=== PATIENT | female | born 1990 | race Caucasian/White ===

== ENCOUNTER 2016-02-25 11:18 | Inpatient (IN) ==
[2016-02-25] MEDS ORDERED: Ketorolac 30 MG/ML VIAL IVP ONE (12:12)
[2016-02-25] MEDS ORDERED: Ondansetron 4 MG/2 ML VIAL IVP ONE ×2 (12:12→15:49)
[2016-02-25] MEDS ORDERED: 0.9 % Sodium Chloride 2,000 ML IVC ONE (12:12)
--- NOTE | 2016-02-25 12:32 | Emergency Department Note ---
Disposition Clinical Impression: Pneumonia involving left lung Qualifiers: Pneumonia type: due to unspecified organism Lung location: unspecified part of lung Qualified Code(s): J18.9 - Pneumonia, unspecified organism Disposition: Admitted As Inpatient Condition: Fair Referrals: NO,PCP [Primary Care Provider] - Forms: ED Satisfaction Letter General Adult HPI - General Chief complaint: ED Fever Stated complaint: HARDIN, N/V Time Seen by Provider: 02/25/16 11:34 Source: patient Mode of arrival: private vehicle Limitations: no limitations Nursing Notes Reviewed: Yes Vital Signs Reviewed: Yes - History of Present Illness Pt Subjective Complaint: chest pain, cough, congestion, headache, nausea, vomiting, and diarrhea Onset (ago): day(s) (4) Location: head, chest Radiation: non-radiation Pain Severity: moderate Pain Scale: 8 Quality: burning, dull Consistency: constant Improves with: nothing Worsens with: other (coughing) Associated symptoms: Reports: chest pain, cough, diaphoresis, fever/chills, headaches, loss of appetite, malaise, nausea/vomiting. Denies: confusion, rash , seizure, shortness of breath, syncope, weakness Treatments Prior to Arrival: none - Related Data Home Medications Medication Instructions Recorded Confirmed Buspirone HCl [Buspar] 10 mg PO BID 02/25/16 02/25/16 CloNIDine HCl [Kapvay] 0.1 mg PO DAILY 02/25/16 02/25/16 Gabapentin [Neurontin] 300 mg PO TID 02/25/16 02/25/16 Labetalol [Trandate] 100 mg PO BID 02/25/16 02/25/16 Quetiapine Fumarate [Seroquel] 50 mg PO HS 02/25/16 02/25/16 Sertraline [Zoloft] 50 mg PO DAILY 02/25/16 02/25/16 Allergies Allergy/AdvReac Type Severity Reaction Status Date / Time azithromycin AdvReac Gastrointestinal Verified 02/25/16 16:43 Upset All systems ED: reviewed and negative except as stated. Constitutional: Reports: fever, chills, weakness Eyes: Denies: eye pain, eye discharge, vision change ENT ED: Reports: congestion. Denies: ear pain, throat pain, dysphagia Cardiovascular: Reports: chest pain. Denies: palpitations, dyspnea on exertion , orthopnea, edema, syncope Respiratory: Reports: cough. Denies: dyspnea, wheezes, hemoptysis, stridor, sputum production Gastrointestinal: Reports: nausea, vomiting, diarrhea. Denies: abdominal pain Genitourinary: Denies: urgency, dysuria, frequency, hematuria Integumentary: Denies: rash Neurological: Denies: headache, weakness, numbness Hematological/Lymphatic: Denies: easy bleeding, easy bruising Allergic/Immunologic: Denies: facial swelling, urticaria, itchy eyes Past Medical History - Past Medical History Attestation: Yes The following information was validated with the patient. Source: patient Medical history: Reports: hepatitis, hypertension, other Surgical history: Reports: no surgical history Psychiatric history: Reports: anxiety, bipolar, depression NUTRIENT MANAGEMENT SPECIALIST history: Reports: no NUTRIENT MANAGEMENT SPECIALIST history - Social History Smoking Status: Current every day smoker Smokeless Tobacco Status: No Alcohol use: Reports: none Drug use: Reports: none, other Physical Exam - General Limitations: no limitations General appearance: alert, in no apparent distress - Head Head exam: atraumatic, normocephalic, normal inspection - Eye Eye exam: Present: normal appearance, PERRL, EOMI. Absent: scleral icterus, conjunctival injection, periorbital swelling - ENT ENT exam: normal oropharynx, mucous membranes dry, TM's normal bilaterally, normal external ear exam - Neck Neck exam: Present: normal inspection, full ROM, trachea midline. Absent: meningismus, lymphadenopathy - Chest Chest inspection: Present: normal inspection, symmetric chest wall rise. Absent : tenderness - Respiratory Respiratory exam: Present: other (crackles in bases). Absent: respiratory distress, wheezes, stridor, accessory muscle use, prolonged expiratory phase - Cardiovascular Cardiovascular exam: Present: normal rhythm, tachycardia, normal heart sounds. Absent: systolic murmur, diastolic murmur - Abdominal Exam Abdominal exam: Present: soft, Non-Tender. Absent: distention, guarding, rebound, mass - Extremities Exam Extremities exam: Present: normal inspection, full ROM. Absent: tenderness, pedal edema - Expanded Lower Extremity Exam Gait: observed and normal - Neurological Exam Neurological exam: Present: alert, oriented X3, CN II-XII intact, normal gait - Psychiatric Psychiatric exam: Present: normal affect, normal mood - Skin Skin exam: Present: warm, dry, intact, normal color Course Course Narrative: Patient presents for evaluation of cough, chest pain, congestion, fever, headache, nausea, vomiting and diarrhea for the past four days. Clinically, she appears dehydrated. She is not hypoxic or tachypneic, has normal blood pressure and has no history of asthma or COPD. She feels warm, however, her temperature in triage was normal. She has no meningeal signs, no abdominal tenderness, no rashes, no neurologic deficits. Labs and x-ray have been ordered along with fluids and medications. Patient has a white count of 25, x-ray shows pneumonia in the left lung. She has had 2 L of normal saline and is feeling better. She is still mildly tachycardic, blood pressure is stable & Normal. Patient received IV Rocephin. However, when the azithromycin was started, she began vomiting again. She has had multiple doses of antiemetics. It is unknown clear whether this is a drug allergy or just continued vomiting from the illness. She still has no abdominal tenderness and denies abdominal pain. Hospitalist has been contacted for admission. Patient's lactic acid was ordered but has not yet been drawn. Her initial presentation did not meet SIRS criteria. Clinically, she appears to have the flu, but was hemodynamically stable and afebrile. Case was discussed with Dr. Pineda. She has seen the patient and agrees with the assessment and plan. Hospitalist was contacted for admission. He will accept the patient. Vital Signs Temperature 99.6 F 02/25/16 11:21 Pulse Rate 140 02/25/16 11:21 Respiratory Rate 20 02/25/16 11:21 Blood Pressure 122/82 02/25/16 11:21 O2 Sat by Pulse Oximetry 96 02/25/16 11:21 Temperature 99.6 F 02/25/16 11:21 Pulse Rate 92 02/25/16 15:38 Respiratory Rate 16 02/25/16 15:38 Blood Pressure 108/89 02/25/16 11:42 O2 Sat by Pulse Oximetry 97 02/25/16 15:38 Oxygen Delivery Oxygen Delivery Room Air Medical Decision Making - Medical Records Medical records reviewed: Yes I reviewed the patient's medical records. - Lab Data Lab results reviewed: Yes I reviewed the patient's lab results. Lab results narrative: Laboratory Last Values WBC 25.8 K/mcL (4.3-11.1) H 02/25/16 12:35 RBC 4.85 M/mcL (3.82-4.97) 02/25/16 12:35 Hgb 13.8 g/dL (11.5-15.4) 02/25/16 12:35 Hct 41.1 % (35.3-44.9) 02/25/16 12:35 MCV 84.7 fL (83.0-100.0) 02/25/16 12:35 MCH 28.5 pg (28.0-33.3) 02/25/16 12:35 MCHC 33.6 g/dL (31.6-35.5) 02/25/16 12:35 RDW 14.3 % (11.5-14.5) 02/25/16 12:35 Plt Count 123 K/mcL (140-400) L 02/25/16 12:35 MPV 11.2 fL (9.4-12.4) 02/25/16 12:35 Seg Neutrophils % 90.0 % 02/25/16 12:35 Lymphocytes % 10.0 % 02/25/16 12:35 Neutrophils # 23.2 K/mcL (1.6-8.9) H 02/25/16 12:35 Lymphocytes # 2.6 K/mcL (0.6-4.6) 02/25/16 12:35 Platelet Estimate Decreased (Normal) L 02/25/16 12:35 Immature Plt Fraction 8.5 % (1.1-6.1) H 02/25/16 12:35 Sodium 133 mEq/L (136-145) L 02/25/16 12:35 Potassium 3.6 mEq/L (3.5-4.5) 02/25/16 12:35 Chloride 100 mEq/L (98-109) 02/25/16 12:35 Carbon Dioxide 21 mEq/L (19-29) 02/25/16 12:35 BUN 8 mg/dL (7-20) 02/25/16 12:35 Creatinine 0.65 mg/dL (0.57-1.11) 02/25/16 12:35 Est GFR ( Amer) > 60 (> 60) 02/25/16 12:35 Est GFR (Non-Af Amer) > 60 (> 60) 02/25/16 12:35 BUN/Creatinine Ratio 12 (6-26) 02/25/16 12:35 Glucose 144 mg/dL (70-99) H 02/25/16 12:35 Calculated Osmolality 277 (280-300) L 02/25/16 12:35 Calcium 9.3 mg/dL (8.6-10.8) 02/25/16 12:35 Total Bilirubin 1.8 mg/dL (0.2-1.2) H 02/25/16 12:35 Direct Bilirubin 1.0 mg/dL (0.0-0.5) H 02/25/16 12:35 Indirect Bilirubin 0.8 mg/dL (0.0-1.2) 02/25/16 12:35 AST 27 Units/L (5-34) 02/25/16 12:35 ALT 46 Units/L (0-55) 02/25/16 12:35 Alkaline Phosphatase 76 Units/L (38-126) 02/25/16 12:35 Serum Total Protein 7.7 g/dL (6.0-8.3) 02/25/16 12:35 Albumin 3.5 g/dL (3.5-5.0) 02/25/16 12:35 Globulin 4.2 g/dL (2.4-3.5) H 02/25/16 12:35 Albumin/Globulin Ratio 0.8 (1.1-2.2) L 02/25/16 12:35 Urine Color Dark Yellow (Yellow) 02/25/16 14:47 Urine Clarity Cloudy (Clear) A 02/25/16 14:47 Urine pH 6.0 pH Units (5.0-8.0) 02/25/16 14:47 Ur Specific [place] 1.021 (1.010-1.025) 02/25/16 14:47 Urine Protein 30 mg/dL (Neg-Trace) H 02/25/16 14:47 Urine Glucose (UA) Normal mg/dL (Normal) 02/25/16 14:47 Urine Ketones 40 mg/dL (Negative) H 02/25/16 14:47 Urine Blood Negative (Negative) 02/25/16 14:47 Urine Nitrite Negative (Negative) 02/25/16 14:47 Urine Bilirubin Negative (Negative) 02/25/16 14:47 Urine Urobilinogen Normal mg/dL (Normal) 02/25/16 14:47 Ur Leukocyte Esterase Negative (Negative) 02/25/16 14:47 Urine Microscopic RBC 0-3 per hpf (0-3) 02/25/16 14:47 Urine Microscopic WBC 5-15 per hpf (0-3) H 02/25/16 14:47 Ur Squamous Epith Cells Many per lpf (None-Few) H 02/25/16 14:47 Urine Bacteria Few per hpf (None-Few) 02/25/16 14:47 Hyaline Casts None Seen per lpf (None-Few) 02/25/16 14:47 Urine Mucus Moderate (Few) H 02/25/16 14:47 Ur Culture Indicated? YES (NO) A 02/25/16 14:47 Result diagrams: 02/25/16 12:35 02/25/16 12:35 Lab Results 02/25/16 02/25/16 02/25/16 Range/Units 12:35 12:35 14:47 WBC 25.8 H (4.3-11.1) K/mcL RBC 4.85 (3.82-4.97) M/mcL Hgb 13.8 (11.5-15.4) g/dL Hct 41.1 (35.3-44.9) % MCV 84.7 (83.0-100.0) fL MCH 28.5 (28.0-33.3) pg MCHC 33.6 (31.6-35.5) g/dL RDW 14.3 (11.5-14.5) % Plt Count 123 L (140-400) K/mcL MPV 11.2 (9.4-12.4) fL Seg Neutrophils % 90.0 % Lymphocytes % 10.0 % Neutrophils # 23.2 H (1.6-8.9) K/mcL Lymphocytes # 2.6 (0.6-4.6) K/mcL Platelet Estimate Decreased L (Normal) Immature Plt Fraction 8.5 H (1.1-6.1) % Sodium 133 L (136-145) mEq/L Potassium 3.6 (3.5-4.5) mEq/L Chloride 100 (98-109) mEq/L Carbon Dioxide 21 (19-29) mEq/L BUN 8 (7-20) mg/dL Creatinine 0.65 (0.57-1.11) mg/dL Est GFR ( Amer) > 60 (> 60) Est GFR (Non-Af Amer) > 60 (> 60) BUN/Creatinine Ratio 12 (6-26) Glucose 144 H (70-99) mg/dL Calculated Osmolality 277 L (280-300) Calcium 9.3 (8.6-10.8) mg/dL Total Bilirubin 1.8 H (0.2-1.2) mg/dL Direct Bilirubin 1.0 H (0.0-0.5) mg/dL Indirect Bilirubin 0.8 (0.0-1.2) mg/dL AST 27 (5-34) Units/L ALT 46 (0-55) Units/L Alkaline Phosphatase 76 (38-126) Units/L Serum Total Protein 7.7 (6.0-8.3) g/dL Albumin 3.5 (3.5-5.0) g/dL Globulin 4.2 H (2.4-3.5) g/dL Albumin/Globulin Ratio 0.8 L (1.1-2.2) Urine Color Dark Yellow (Yellow) Urine Clarity Cloudy A (Clear) Urine pH 6.0 (5.0-8.0) pH Units Ur Specific [place] 1.021 (1.010-1.025) Urine Protein 30 H (Neg-Trace) mg/dL Urine Glucose (UA) Normal (Normal) mg/dL Urine Ketones 40 H (Negative) mg/dL Urine Blood Negative (Negative) Urine Nitrite Negative (Negative) Urine Bilirubin Negative (Negative) Urine Urobilinogen Normal (Normal) mg/dL Ur Leukocyte Esterase Negative (Negative) Urine Microscopic RBC 0-3 (0-3) per hpf Urine Microscopic WBC 5-15 H (0-3) per hpf Ur Squamous Epith Cells Many H (None-Few) per lpf Urine Bacteria Few (None-Few) per hpf Hyaline Casts None Seen (None-Few) per lpf Urine Mucus Moderate H (Few) Ur Culture Indicated? YES A (NO) - Radiology Data Radiology results reviewed: Yes I reviewed the patient's radiology results. Chest X-Ray 02/25/16 12:13 IMPRESSION: Ground-glass opacity in the left mid and lower lung zone, highly suspicious for infection in the appropriate clinical setting. Recommend treating the patient and following to resolution. D/ / 02/25/2016 13:12:53 Rachael Schroeder MD / jazz Interpreting Provider: Rachael Schroeder MD - EKG Data EKG #1 EKG attestation: Yes I reviewed and interpreted this EKG. EKG shows normal: sinus rhythm Rate: tachycardia Rhythm: NSR When compared to previous EKG there are: previous EKG unavailable Interpretation: other
[2016-02-25 12:42] LABS: Hematocrit 41.1 % (35.3-44.9); Hemoglobin 13.8 g/dL (11.5-15.4); Immature Platelets 8.5 % (1.1-6.1); Mean Corpuscular HGB Conc 33.6 g/dL (31.6-35.5); Mean Corpuscular Hemoglobin 28.5 pg (28.0-33.3); Mean Corpuscular Volume 84.7 fL (83.0-100.0); Mean Platelet Volume 11.2 fL (9.4-12.4); Platelet Count 123 K/mcL (140-400); Red Blood Count 4.85 M/mcL (3.82-4.97); Red Cell Distribution Width 14.3 % (11.5-14.5)
[2016-02-25 12:54] LABS: Alanine Aminotransferase 46 Units/L (0-55); Albumin 3.5 g/dL (3.5-5.0); Albumin/Globulin Ratio 0.8 (1.1-2.2); Alkaline Phosphatase 76 Units/L (38-126); Aspartate Amino Transferase 27 Units/L (5-34); BUN/Creatinine Ratio 12 (6-26); Bilirubin,Indirect 0.8 mg/dL (0.0-1.2); Bilirubin,Total 1.8 mg/dL (0.2-1.2); Blood Urea Nitrogen 8 mg/dL (7-20); Calcium 9.3 mg/dL (8.6-10.8); Carbon Dioxide 21 mEq/L (19-29); Chloride 100 mEq/L (98-109); Globulin 4.2 g/dL (2.4-3.5); Glucose 144 mg/dL (70-99); Osmolality,Calculated 277 (280-300); Potassium 3.6 mEq/L (3.5-4.5); Sodium 133 mEq/L (136-145); Total Protein 7.7 g/dL (6.0-8.3); eGFR For African Americans > 60 (> 60); eGFR For Non-African Americans > 60 (> 60)
[2016-02-25 13:30] LABS: Lymphocytes # 2.6 K/mcL (0.6-4.6); Neutrophils # 23.2 K/mcL (1.6-8.9); Platelet Estimate Decreased (Normal)
[2016-02-25] MEDS ORDERED: Metoclopramide 10 MG/2 ML VIAL IVP ONE (14:08)
[2016-02-25] MEDS ORDERED: Azithromycin 500 MG in D5% in Water 250 ML IVPB ONE (14:12)
[2016-02-25 14:55] LABS: Bilirubin,Urine Negative (Negative); Blood,Urine Negative (Negative); Clarity,Urine Cloudy (Clear); Color,Urine Dark Yellow (Yellow); Glucose,Urine (UA) Normal (Normal); Ketones,Urine 40 mg/dL (Negative); Leukocyte Esterase,Urine Negative (Negative); Nitrite,Urine Negative (Negative); Protein,Urine 30 mg/dL (Neg-Trace); Specific Gravity,Urine 1.021 (1.010-1.025); Urobilinogen,Urine Normal (Normal)
[2016-02-25 14:57] LABS: Bacteria,Urine Few per hpf (None-Few); Hyaline Casts,Urine None Seen per lpf (None-Few); RBC,Urine 0-3 per hpf (0-3); Squamous Epithelial Cell,Urine Many per lpf (None-Few)
[2016-02-25 15:10] LABS: Mucus,Urine Moderate (Few)
[2016-02-25] MEDS ORDERED: Vancomycin (wt based) 1,000 MG VIAL IV ONE (15:51)
[2016-02-25] MEDS ORDERED: Piperacillin/Tazobactam 4.5 GM in D5% in Water (Mini-Bag+) 100 ML IVPB ONE (15:56)
[2016-02-25] MEDS ORDERED: Vancomycin 1,000 MG in D5% in Water 250 ML IVPB ONE (16:08)
[2016-02-25] MEDS ORDERED: 0.9 % Sodium Chloride 500 ML IV ONE (16:35)
--- NOTE | 2016-02-25 16:56 | Emergency Department Note ---
START Narrative - START START: I examined this patient and my medical decision-making was reviewed with the MAINTENANCE DEPARTMENT MANAGER/PA/Advanced Practice Nurse/Resident Physician. I agree with the documented findings, disposition and treatment plan as described except to the extent set forth below. Asked to consult on patient at 1645. Patient to emergency Department short of breath. Nausea vomiting. Exam shows her awake alert no distress. Initial vital signs were temperature 90.9 with a heart rate in the 140s. Lungs with symmetric breath sounds. Plan. Patient does have an infiltrate on chest x- ray. White blood cell count is 25,000. She is meeting sepsis criteria at this time. A lactate was ordered but was delayed secondary to patient not meeting SIRS criteria on arrival. IV fluids and IV antibiotics. Patient admitted.
[2016-02-25] MEDS ORDERED: Naloxone 0.4 MG/ML INJ IVP PRN (19:14)
[2016-02-25] MEDS ORDERED: Ondansetron 4 MG/2 ML VIAL IVP PRN (19:14)
[2016-02-25] MEDS ORDERED: 0.9 % Sodium Chloride 1,000 ML IVC SCH (19:15)
[2016-02-25] MEDS ORDERED: Ketorolac 15 MG/ML VIAL IVP PRN (19:19)
[2016-02-25] MEDS ORDERED: Albuterol 2.5 MG/3 ML NEBULIZER IH PRN (19:19)
[2016-02-25] MEDS: Gabapentin 300 MG CAPSULE PO SCH (20:05)
--- NOTE | 2016-02-25 20:36 | Internal Med History&Physical ---
Date of Encounter: 02/25/16 Time of Encounter: 19:30 Assessment and Plan (1) Sepsis Current visit: Yes Status: Acute 1 Presented with tachycardia 140 has hypotension systolic 97 source is most likely pneumonia has ahd 2 liters and will give another fluid bolus . Will continue aggressive hydration. Blood culture obtained- obtaining stool culture 2 will continue with ATB Levaquin will added flagyl dt hx of diarrhea- awating stool cultures 3 will monitor VS every hour until systolic BP sustained above 100 4 close monitoring of I/O- will place [place] (2) Pneumonia involving left lung Current visit: Yes Status: Acute 1 has had cough congestion fever for 2 days - started on Levaquin- blood culture obtained will obtain sputum culture 2 oxygen as needed - 3 Incentive spirometry 4 albuterol as needed Qualifiers: Pneumonia type: due to unspecified organism Lung location: unspecified part of lung Qualified Code(s): J18.9 - Pneumonia, unspecified organism (3) HTN (hypertension), benign Current visit: Yes Status: Acute 1 presently hypotensive will hold antihypertensives and resume once back to baseline (4) DVT prophylaxis Current visit: Yes Status: Acute 1 heparin subcutaneous (5) Gastroenteritis Current visit: Yes Status: Acute 1 zofran for nauses 2 IVF 3 stool cultures (6) Tobacco abuse Current visit: Yes Status: Acute 1 encouraged patient to stop smoking- nicotine patch Internal Medicine - H&P: HPI Chief complaint: N/V/D Admitted From: Home History of present illness: Ms. Higuera is a 25 year old female with a past medical history of hypertension bipolar disorder, previous opioid dependency tobacco abuse Patient has been experiencing cough chest pain on inspiration congestion fever (103) headaches nausea vomiting diarrhea watery nonbloody for the past 2 days. She states she has been unable to tolerate oral intake. She denies any recent travel or sick contacts . She presented to the emergency department the above complaints. According to ED records upon presentation the patient was tachycardic with HR 140 temp 99.0 She was given IV fluids lactate was obtained as well as other labs. She has an elevated WBC 25 her urine was negative for UTI CXR with opacity in left mid and lower zone . She was given ATB, antiemetics and 2nd Liter of IV fluid. Her vitals improved and she was admitted for further workup and evaluation. Presently the patient is complaining of chest pain on inspiration, she does not appear to be in any distress. Her BP was low at 97 systolic. Her lung sounds are diminished, her respirations are shallow. Encouraged patient to take deep breaths which she states "it hurts". Abd is soft and nontender She is given IV fluids and pain medication. - I reviewed case with Dr Hilario who agrees with plan Past Med Surg Social Fam HX - Past Medical History Medical history: hepatitis, hypertension, other Psychiatric history: anxiety, bipolar, depression - Past Surgical History Surgical History: no surgical history - Social History Smoking Status: Current every day smoker Smokeless Tobacco Status: No Alcohol use: none Drug use: none, other - Family History Mother Adopted: No Living Status: Still Living Hx Family Cardiac Disorders: No Hx Family Respiratory Disorders: Yes (COPD) Hx Family Cancer: No Hx Family GI Disorders: No Hx Family Endocrine Disorder: No Hx Family Neuromuscular Disorders: No Hx Family Neurologic Disorders: No Hx Family HEENT Disorders: No Hx Family Autoimmune Disorders: No Internal Medicine - H&P: Meds Buspirone HCl [Buspar] 10 mg PO BID 02/25/16 [History] CloNIDine HCl [Kapvay] 0.1 mg PO DAILY 02/25/16 [History] Gabapentin [Neurontin] 300 mg PO TID 02/25/16 [History] Labetalol [Trandate] 100 mg PO BID 02/25/16 [History] Quetiapine Fumarate [Seroquel] 50 mg PO HS 02/25/16 [History] Sertraline [Zoloft] 50 mg PO DAILY 02/25/16 [History] Allergies azithromycin Adverse Reaction (Verified 02/25/16 16:43) Gastrointestinal Upset All Systems PM: A 10-system review of systems was performed and is negative for pertinent findings except as documented above in the HPI. - Constitutional Constitutional: malaise - Cardiovascular Cardiovascular ROS IM: no chest pain, no diaphoresis, no dyspnea, no lightheadedness, no palpitations, no syncope - Respiratory Respiratory: cough, pain on inspiration, chest congestion - Gastrointestinal Gastrointestinal: abdominal pain, diarrhea, nausea, vomiting - Genitourinary Genitourinary: no change in urinary stream, no dysuria, no flank pain, no hematuria - Musculoskeletal Musculoskeletal ROS IM: no numbness, no tingling - Neurological Neurological ROS: no confusion, no convulsions, no focal weakness, no numbness, no tingling, no tremor(s) - Hematologic/Lymphatic Hematologic/Lymphatic: no easy bruising - Constitutional Vitals: Temp Pulse Resp BP Pulse Ox 98 F 74 14 97/52 93 L 02/25/16 18:13 02/25/16 18:13 02/25/16 18:13 02/25/16 18:13 02/25/16 18:13 General appearance: Present: A&O X 3, answers questions appropriately - Eye Eye exam: Present: PERRL, conjuntiva pink, sclera anicteric Pupils: Present: PERRL - Neck Neck exam general surgery: Present: supple, trachea midline. Absent: lymphadenopathy - Respiratory Respiratory exam: Present: decreased breath sounds, CTAB. Absent: accessory muscle use, rales, rhonchi, wheezes - Cardiovascular Cardiovascular exam: Present: RRR, +S1, +S2. Absent: diastolic murmur, gallop, rubs, systolic murmur - GI/Abdominal GI/Abdominal exam: Present: normal bowel sounds, soft, no peritoneal signs. Absent: distended, tenderness - Extremities Exam Extremities exam: Present: warm, radial pulses palpable and symetrical. Absent : calf tenderness, cyanotic, pedal edema - Neurological Exam Neurological exam: Present: CN II-XII intact, oriented X3, no focal deficits. Absent: pronater drift, facial droop, speech deficit - Skin Skin exam: Present: dry, intact Internal Med - H&P Results - Labs CBC & Chem 7: 02/25/16 12:35 02/25/16 12:35 - EKG Data EKG shows normal: sinus rhythm - EKG Data Prior EKG available for review: no Interpretation IM: normal EKG - Diagnostic Studies Chest x-ray Additional comments: Radiology read groundglass PACs and left mid and lower lung zones high suspicious for infection Clinical setting. Recommend treating the patient following to resolution
[2016-02-25] MEDS ORDERED: 0.9 % Sodium Chloride 500 ML IVC ONE ×2 (20:39→21:19)
--- NOTE | 2016-02-25 21:22 | Event Note ---
Date of Encounter: 02/25/16 Time of Encounter: 21:19 Patient seen and examined. Presents with a picture of gastroenteritis vomiting and diarrhea for the past 2 days. Diarrhea is watery non-bloody proximately 10 bowel movements a day she had small amounts of bloody blood in the vomitus with her intractable vomiting. She has also been complaining of pleuritic chest pain and nonproductive cough in addition to fevers of 203 at home. She has been very weak. X-ray shows left-sided pneumonia. Patient started Levaquin Flagyl will also be added stool studies will be checked. Aggressive hydration. Monitor urine output. Patient last blood pressure is 97/52 monitor blood pressure hourly Hyl[place] catheter will be placed to monitor urine output. Fluid bolus will be given . Telemetry monitoring. She denies sick contacts recent travel. Denies any prior history of DVT and pulmonary embolism. She is not many -control pills.
[2016-02-25] MEDS: *HR* Morphine 2 MG/ML SYRINGE IVP SCH (23:25)
[2016-02-26] MEDS: MetroNIDAZOLE 500 MG/100 ML 500 MG/100 ML BAG IVPB SCH ×3 (00:11→15:35)
[2016-02-26] MEDS ORDERED: Ketorolac 15 MG/ML VIAL IVP ONE (00:39)
[2016-02-26] MEDS ORDERED: 0.9 % Sodium Chloride 500 ML ONE (00:46)
[2016-02-26] MEDS: 0.9 % Sodium Chloride 1,000 ML IVC SCH ×2 (02:19→15:43)
[2016-02-26] MEDS: *HR* Morphine 2 MG/ML SYRINGE IVP SCH ×5 (05:56→20:13)
[2016-02-26] MEDS: *HR* Heparin 5,000 UNIT/ML VIAL SQ SCH ×2 (05:56→17:17)
[2016-02-26] MEDS ORDERED: Ampicillin/Sulbactam 1,500 MG in 0.9 % Sodium Chloride Mini Bag 100 ML IVPB SCH (06:00)
[2016-02-26] MEDS: Nicotine 14 MG PATCH.TD24 TD SCH (08:09)
[2016-02-26] MEDS: Levofloxacin 750 MG/150 ML 750 MG/150 ML BAG IVPB SCH (08:09)
[2016-02-26] MEDS: Gabapentin 300 MG CAPSULE PO SCH ×3 (08:10→20:13)
[2016-02-26] MEDS: Acetaminophen 325 MG TABLET PO PRN ×2 (15:34→22:24)
[2016-02-26 16:36] LABS: Basophils # 0.1 K/mcL (0.0-0.2); Basophils % 0.3 %; Eosinophils % 0.1 %; Hematocrit 36.1 % (35.3-44.9); Immature Granulocytes % 4.4 % (0-4); Lymphocytes # 0.9 K/mcL (0.6-4.6); Lymphocytes % 5.9 %; Mean Corpuscular Hemoglobin 28.1 pg (28.0-33.3); Mean Corpuscular Volume 85.1 fL (83.0-100.0); Mean Platelet Volume 11.3 fL (9.4-12.4); Monocytes # 0.7 K/mcL (0.0-1.3); Monocytes % 4.9 %; Neutrophils # 12.7 K/mcL (1.6-8.9); Platelet Count 117 K/mcL (140-400); Red Blood Count 4.24 M/mcL (3.82-4.97); Red Cell Distribution Width 14.3 % (11.5-14.5); Segmented Neutrophils % 84.4 %
[2016-02-26 16:38] LABS: Hemoglobin 11.9 g/dL (11.5-15.4)
[2016-02-26] MEDS ORDERED: Hydrocortisone Sodium Succ 100 MG/2 ML VIAL IVP ONE (16:47)
[2016-02-26 16:48] LABS: BUN/Creatinine Ratio 12 (6-26); Blood Urea Nitrogen 6 mg/dL (7-20); Calcium 8.4 mg/dL (8.6-10.8); Carbon Dioxide 22 mEq/L (19-29); Chloride 108 mEq/L (98-109); Glucose 119 mg/dL (70-99); Magnesium 1.9 mg/dL (1.6-2.6); Osmolality,Calculated 281 (280-300); Phosphorous 1.1 mg/dL (2.3-4.7); Potassium 3.6 mEq/L (3.5-4.5); Sodium 136 mEq/L (136-145); eGFR For African Americans > 60 (> 60); eGFR For Non-African Americans > 60 (> 60)
[2016-02-26 16:59] LABS: Dohle Bodies Present (Not Present); Platelet Estimate Normal (Normal)
[2016-02-26] MEDS: Ipratropium/Albuterol Neb 3 ML IH SCH ×3 (17:59→23:56)
--- NOTE | 2016-02-26 18:00 | Internal Med Progress Note ---
Date of Encounter: 02/26/16 Time of Encounter: 05:00 - Assessment and plan (1) Pneumonia involving left lung Current Visit: Yes Status: Acute Assessment and plan: Add solu Medrol and aerosol treatment every 4 hours Qualifiers: Pneumonia type: due to unspecified organism Lung location: unspecified part of lung Qualified Code(s): J18.9 - Pneumonia, unspecified organism (2) Sepsis Current Visit: Yes Status: Acute Qualifiers: Sepsis type: sepsis due to unspecified organism Qualified Code(s): A41.9 - Sepsis, unspecified organism (3) Pleurisy Current Visit: Yes Status: Acute Assessment and plan: Add steroids. Consider nonsteroidal anti-inflammatory (4) Hypophosphatemia Current Visit: Yes Status: Acute Assessment and plan: Replace and recheck - Time Spent With Patient 25 - 35 minutes - Subjective Interval history: Patient is complaining of shortness of breath with taking deep breath. Patient is feeling anxious - Constitutional Vitals: Temp Pulse Resp BP Pulse Ox 98.9 F 83 16 127/80 93 L 02/26/16 11:40 02/26/16 11:40 02/26/16 11:40 02/26/16 11:40 02/26/16 11:40 General appearance: Present: mild distress, A&O X 3, answers questions appropriately - Head Head exam: Present: atraumatic, normocephalic - Neck Neck exam general surgery: Present: supple, trachea midline. Absent: lymphadenopathy - Respiratory Respiratory exam: Present: decreased breath sounds, CTAB, prolonged expiratory phase, rales (Expiratory wheezing and crackles bilateral lung field markedly diminished bruising sounds on right), wheezes. Absent: accessory muscle use, rhonchi - Cardiovascular Cardiovascular exam: Present: RRR, +S1, +S2. Absent: diastolic murmur, gallop, rubs, systolic murmur - GI/Abdominal GI/Abdominal exam: Present: normal bowel sounds, soft, no peritoneal signs. Absent: distended, tenderness - Extremities Exam Extremities exam: Present: warm, radial pulses palpable and symetrical. Absent : calf tenderness, cyanotic, pedal edema - Neurological Exam Neurological exam: Present: CN II-XII intact, oriented X3, no focal deficits. Absent: pronater drift, facial droop, speech deficit - Skin Skin exam: Present: dry, intact Internal Medicine: Result - Labs CBC & Chem 7: 02/26/16 16:30 02/26/16 16:30 Labs: Short CBC 02/26/16 Range/Units 16:30 WBC 15.1 H (4.3-11.1) K/mcL Hgb 11.9 D (11.5-15.4) g/dL Hct 36.1 (35.3-44.9) % Plt Count 117 L (140-400) K/mcL Neutrophils # 12.7 H (1.6-8.9) K/mcL BMP 02/26/16 16:30 Sodium 136 Potassium 3.6 Chloride 108 Carbon Dioxide 22 BUN 6 L Creatinine 0.52 L Glucose 119 H Calcium 8.4 L - ABG Interpretation ABG results: PT/INR, D-dimer D-Dimer 911 ng/mLFEU (0-500) H 02/26/16 00:44 - Impressions Impressions Chest CTA 02/26/16 02:14 IMPRESSION: 1. No evidence of pulmonary embolism. 2. Left upper lobe and lingular pneumonia with trace left pleural effusion. D/ / Adan Lynn MD / Adan Lynn MD Interpreting Provider: Adan Lynn MD Consult Discharge Plan - Plan Referrals: Raf Bautista DO [Partnered Physician] - (web request sent on 2015 )
[2016-02-26] MEDS ORDERED: Potassium Phosphate 44 MEQ in 0.9 % Sodium Chloride 250 ML IVPB ONE (18:08)
[2016-02-27] MEDS: MetroNIDAZOLE 500 MG/100 ML 500 MG/100 ML BAG IVPB SCH ×3 (01:12→16:28)
[2016-02-27] MEDS: *HR* Morphine 2 MG/ML SYRINGE IVP SCH ×6 (01:13→21:47)
[2016-02-27] MEDS: Ipratropium/Albuterol Neb 3 ML IH SCH ×6 (04:02→23:16)
[2016-02-27] MEDS: Acetaminophen 325 MG TABLET PO PRN (05:54)
[2016-02-27] MEDS: *HR* Heparin 5,000 UNIT/ML VIAL SQ SCH ×2 (05:55→16:36)
[2016-02-27 07:50] LABS: Phosphorous 2.1 mg/dL (2.3-4.7); Potassium 3.2 mEq/L (3.5-4.5)
[2016-02-27] MEDS: Levofloxacin 750 MG/150 ML 750 MG/150 ML BAG IVPB SCH (08:07)
[2016-02-27] MEDS: methylPREDNISolone 125 MG/2 ML VIAL IVP SCH ×2 (08:07→21:28)
[2016-02-27] MEDS: Gabapentin 300 MG CAPSULE PO SCH ×3 (08:07→21:28)
[2016-02-27] MEDS: Nicotine 14 MG PATCH.TD24 TD SCH (08:08)
[2016-02-27 08:09] LABS: Basophils # 0.1 K/mcL (0.0-0.2); Basophils % 0.6 %; Hematocrit 33.1 % (35.3-44.9); Hemoglobin 10.8 g/dL (11.5-15.4); Immature Granulocytes % 3.7 % (0-4); Lymphocytes # 1.4 K/mcL (0.6-4.6); Lymphocytes % 11.7 %; Mean Corpuscular HGB Conc 32.6 g/dL (31.6-35.5); Mean Corpuscular Hemoglobin 27.9 pg (28.0-33.3); Mean Corpuscular Volume 85.5 fL (83.0-100.0); Mean Platelet Volume 11.5 fL (9.4-12.4); Monocytes # 0.8 K/mcL (0.0-1.3); Monocytes % 6.2 %; Neutrophils # 9.5 K/mcL (1.6-8.9); Platelet Count 131 K/mcL (140-400); Red Blood Count 3.87 M/mcL (3.82-4.97); Red Cell Distribution Width 14.3 % (11.5-14.5); Segmented Neutrophils % 77.8 %
[2016-02-27] MEDS ORDERED: *HR* HYDROcodone/Acet 5/325 mg TABLET PO PRN (09:51)
[2016-02-27] MEDS ORDERED: Potassium Phosphate 44 MEQ in 0.9 % Sodium Chloride 250 ML IVPB ONE (09:53)
--- NOTE | 2016-02-27 10:43 | Electrocardiograph Report ---
[facility] Test Date: 2016-02-25 Pat Name: Saida Higuera Department: 103 Room: 2A26 Gender: F Senior Product Designer: MSC : [id number] Requested By: Guerda Pace Order Number: [id number] Reading MD: Jay Jay Lei DO Measurements Intervals [place] Rate: 102 P: 52 VA: 133 QRS: 40 QRSD: 84 T: 34 QT: 336 QTc: 395 Interpretive Statements Sinus tachycardia Possible left atrial enlargement Nonspecific ST-T changes Electronically Signed On 02-27-16 10:43:20 EST by Jay Jay Lei DO
--- NOTE | 2016-02-27 11:26 | Internal Med Progress Note ---
Date of Encounter: 02/27/16 Time of Encounter: 13:00 - Assessment and plan (1) Pneumonia involving left lung Current Visit: Yes Status: Acute Assessment and plan: Continue solu Medrol and aerosol treatment every 4 hours, continue current antibiotics Qualifiers: Pneumonia type: due to unspecified organism Lung location: unspecified part of lung Qualified Code(s): J18.9 - Pneumonia, unspecified organism (2) Sepsis Current Visit: Yes Status: Acute Qualifiers: Sepsis type: sepsis due to unspecified organism Qualified Code(s): A41.9 - Sepsis, unspecified organism (3) Pleurisy Current Visit: Yes Status: Acute Assessment and plan: continue steroids. Consider nonsteroidal anti-inflammatory (4) Hypophosphatemia Current Visit: Yes Status: Acute Assessment and plan: Replace and recheck (5) Chest pain Current Visit: Yes Status: Acute Assessment and plan: Possible pericarditis, pleuritis. Discussed with cardiology will order ESR CRP cardiac Echo to rule out any pericardial effusion or pericarditis, EKGs showed poor R wave progression anterior leads, discussed with cardiology ,will order cardiac enzymes 3 ,add nitroglycerin as needed and aspirin. With her history of drug use will check urine tox screen Qualifiers: Chest pain type: chest pain on breathing Qualified Code(s): R07.1 - Chest pain on breathing - Time Spent With Patient Greater than 35 minutes - Subjective Interval history: Patient is complaining of shortness of breath , sever chest pain with taking deep breath 8 out of 10 in severity. Complain of nausea but no vomiting. Patient is complaining of left upper quadrant pain - Constitutional Vitals: Temp Pulse Resp BP Pulse Ox 98.2 F 68 16 149/99 95 02/27/16 10:54 02/27/16 10:54 02/27/16 10:54 02/27/16 10:54 02/27/16 10:54 General appearance: Present: mild distress, A&O X 3, answers questions appropriately - Head Head exam: Present: atraumatic, normocephalic - Eye Eye exam: Present: conjuntiva pink, sclera anicteric Pupils: Present: PERRL - Neck Neck exam general surgery: Present: supple, trachea midline. Absent: lymphadenopathy - Respiratory Respiratory exam: Present: decreased breath sounds. Absent: accessory muscle use, rales, wheezes - Cardiovascular Cardiovascular exam: Present: RRR, +S1, +S2. Absent: diastolic murmur, gallop, rubs, systolic murmur - GI/Abdominal GI/Abdominal exam: Present: normal bowel sounds, soft, tenderness (left upper quaderant tenderness), no peritoneal signs. Absent: distended - Extremities Exam Extremities exam: Present: warm, radial pulses palpable and symetrical. Absent : calf tenderness, cyanotic, pedal edema - Neurological Exam Neurological exam: Present: CN II-XII intact, oriented X3, no focal deficits. Absent: pronater drift, facial droop, speech deficit Internal Medicine: Result - Labs CBC & Chem 7: 02/27/16 07:29 02/27/16 07:29 Labs: Short CBC 02/26/16 02/27/16 Range/Units 16:30 07:29 WBC 15.1 H 12.2 H (4.3-11.1) K/mcL Hgb 11.9 D 10.8 L (11.5-15.4) g/dL Hct 36.1 33.1 L (35.3-44.9) % Plt Count 117 L 131 L (140-400) K/mcL Neutrophils # 12.7 H 9.5 H (1.6-8.9) K/mcL BMP 02/26/16 02/27/16 16:30 07:29 Sodium 136 Potassium 3.6 3.2 L Chloride 108 Carbon Dioxide 22 BUN 6 L Creatinine 0.52 L Glucose 119 H Calcium 8.4 L - ABG Interpretation ABG results: PT/INR, D-dimer D-Dimer 911 ng/mLFEU (0-500) H 02/26/16 00:44 Consult Discharge Plan - Plan Referrals: [facility] [Outside]
[2016-02-27] MEDS ORDERED: Nitroglycerin 0.4 MG TAB.SUBL SL PRN (11:28)
[2016-02-27] MEDS: Aspirin Enteric Coated 325 MG Tablet PO SCH (12:08)
[2016-02-27 13:30] LABS: Albumin 2.8 g/dL (3.5-5.0); Albumin/Globulin Ratio 0.7 (1.1-2.2); Bilirubin,Direct 0.3 mg/dL (0.0-0.5); Bilirubin,Indirect 0.2 mg/dL (0.0-1.2); Bilirubin,Total 0.5 mg/dL (0.2-1.2); Globulin 4.1 g/dL (2.4-3.5); Total Protein 6.9 g/dL (6.0-8.3)
--- NOTE | 2016-02-27 13:49 | Cardiology Consult Note ---
<Jayson Degroot - Last Filed: 02/27/16 14:30> Date of Encounter: 02/27/16 Time of Encounter: 13:49 Assessment and Plan (1) Chest pain Current Visit: Yes Status: Acute Patient has left sided chest pain in the setting of left upper lingular pneumonia. Patient has pain with deep breaths, leaning forward or laying flat. ESR is 109, EKGs were reviewed and demonstrate a change in voltage in lead V4- V5 on 02/27/16 compared to previous days EKGs. EKG's do not demonstrate concerning findings for pericarditis. CTA of the chest reviewed and without findings for PE, fluid collection in the percardium or cardiomegaly. Blood cultures negative. Patient has a history of IV drug use with last use 2 years ago. Low suspicion at this time for endocarditis given the length of time and negative cultures. Suspect pluretic chest pain secondary to pneumonia and sepsis. Plan: - Repeat EKG as EKG changes may be lead placement. - Continue current treatment of underline medical ailments - Repeat EKG in am. Qualifiers: Chest pain type: chest pain on breathing Qualified Code(s): R07.1 - Chest pain on breathing (2) HTN (hypertension), benign Current Visit: Yes Status: Acute Patient has a history of HTN and home medications include Labetalol and Clonidine. She was hypotensive and septic upon admission and BP medications were held. Current BP 140's/99. Patient continues treatment for current pneumonia. Plan: - Start Norvasc 10mg PO once daily. - Hold Clonidine and Labetalol as they are both AV node blockers. Discussion w patient/family: The assessment and plan as outlined above was discussed with the patient and/or family members who expressed understanding and agreement. All questions were answered. Thank you for involving us in the care of your patient. Please call with any questions. History of Present Illness Consult date: 02/27/16 Requesting physician: Angie Osorio Consult reason: suspected pericarditis Chief complaint: shortness of breath History of present illness: Ms. Higuera is a 25 year old female with significant medical history of HTN on Labetalol and Clonidine, hx of IV drug use last use 2 years ago was admitted to [facility] for left upper lobe ligular pneumonia and Sepsis. Patient denies any other significant cardiac history other than her HTN. She describes left substernal chest pain that stays localized to her left anterior chest wall. exacerbating factors include laying flat or sitting up, deep breaths. She denies any radiation of her pain. She has never had similar symptoms. What makes it better is laying at a 45 angle and taking short shallow breaths. Time of duration since admission. Patient does have a history of IV drug use with her last use 2 years ago. She does have a history of Hepatitis C antibody positive with quant and reflex pending. Past Med Surg Social Fam HX - Past Medical History Medical history: hepatitis, hypertension, other Psychiatric history: anxiety, bipolar, depression - Past Surgical History Surgical History: no surgical history - Social History Smoking Status: Current every day smoker Smokeless Tobacco Status: No Alcohol use: none Drug use: none, other - Family History Mother Adopted: No Living Status: Still Living Hx Family Cardiac Disorders: No Hx Family Respiratory Disorders: Yes (COPD) Hx Family Cancer: No Hx Family GI Disorders: No Hx Family Endocrine Disorder: No Hx Family Neuromuscular Disorders: No Hx Family Neurologic Disorders: No Hx Family HEENT Disorders: No Hx Family Autoimmune Disorders: No Medications and Allergies Buspirone HCl [Buspar] 10 mg PO BID 02/25/16 [History] CloNIDine HCl [Kapvay] 0.1 mg PO DAILY 02/25/16 [History] Gabapentin [Neurontin] 300 mg PO TID 02/25/16 [History] Labetalol [Trandate] 100 mg PO BID 02/25/16 [History] Quetiapine Fumarate [Seroquel] 50 mg PO HS 02/25/16 [History] Sertraline [Zoloft] 50 mg PO DAILY 02/25/16 [History] Allergies azithromycin Adverse Reaction (Verified 02/25/16 16:43) Gastrointestinal Upset All Systems Review: A 10-system review of systems was performed and is negative for pertinent findings except as documented above in the HPI. - Constitutional Constitutional: chills, fever(s), no weakness - EENT Eyes: no blurred vision, no loss of vision Nose, mouth and throat: sore throat - Cardiovascular Cardiovascular: chest pain at rest, chest pain with exertion, diaphoresis, no irregular heart rhythm, no radiating jaw, neck or arm pain, no leg edema, no syncope - Respiratory Respiratory: cough - Gastrointestinal Gastrointestinal: diarrhea, no hematemesis, no hematochezia, no melena - Genitourinary Genitourinary: no hematuria, no nocturia - Neurological Neurological: no abnormal speech, no syncope Physical Examination Vital Signs, Last 4 Hours Temp Pulse Resp BP Pulse Ox 02/27/16 11:20 16 95 02/27/16 10:54 98.2 F 68 16 149/99 95 General: Conversant, No Apparent Distress HEENT: Atraumatic, Normocephaly, Mucus Membranes Moist Neck: No JVD, Normal carotid pulses Cardiac: Reg Rate and Rhythm, Normal S1 and S2, No Murmur Lungs: No Wheeze, Rales, Rhonchi, Other (patient taking short shallow breaths) Neuro: Alert and responsive, No focal deficits noted Abdomen: Soft, Non-Tender Skin: No rashes noted on visualized skin Musculoskeletal: No Chest Wall Tenderness Extremities: No Clubbing, No Cyanosis, No Edema, Normal Pulses Results 02/27/16 07:29 02/27/16 07:29 Lab Results 02/26/16 02/26/16 02/27/16 16:30 16:30 07:29 WBC 15.1 H 12.2 H Hgb 11.9 D 10.8 L Hct 36.1 33.1 L Plt Count 117 L 131 L Sodium 136 Potassium 3.6 Chloride 108 Carbon Dioxide 22 BUN 6 L Creatinine 0.52 L Glucose 119 H Calcium 8.4 L Magnesium 1.9 Total Bilirubin AST ALT Alkaline Phosphatase Lipase 02/27/16 02/27/16 07:29 13:03 WBC Hgb Hct Plt Count Sodium Potassium 3.2 L Chloride Carbon Dioxide BUN Creatinine Glucose Calcium Magnesium Total Bilirubin 0.5 AST 22 ALT 25 Alkaline Phosphatase 62 Lipase 7 L Consult Discharge Plan - Plan Referrals: [facility] [Outside] <Marylin Meehan - Last Filed: 02/27/16 17:22> Date of Encounter: 02/27/16 Assessment and Plan Discussion w patient/family: The assessment and plan as outlined above was discussed with the patient and/or family members who expressed understanding and agreement. All questions were answered. Thank you for involving us in the care of your patient. Please call with any questions. History of Present Illness History of present illness: Ms. Higuera is a 25 year old female All Systems Review: A 10-system review of systems was performed and is negative for pertinent findings except as documented above in the HPI. Physical Examination Vital Signs, Last 4 Hours Temp Pulse Resp BP Pulse Ox 02/27/16 16:44 97.6 F 57 16 161/91 94 L 02/27/16 16:00 1 97 Results 02/27/16 07:29 02/27/16 07:29 Lab Results 02/27/16 02/27/16 02/27/16 07:29 07:29 13:03 WBC 12.2 H Hgb 10.8 L Hct 33.1 L Plt Count 131 L Potassium 3.2 L Total Bilirubin 0.5 AST 22 ALT 25 Alkaline Phosphatase 62 Lipase 7 L - Attending Attestation I examined this patient and my medical decision-making was reviewed with the MANAGER DELIVERY/PA/Advanced Practice Nurse/Resident Physician. I agree with the documented findings, disposition and treatment plan. Ms. Higuera presents with Pneumonia. She is febrile and diaphoretic and has pleuritic chest discomfort. I personally reviewed all her hospital ECGs which are similar when compared to each other and do no demonstrate any concerning finding. They are also not diagnostic of pericarditis. In addition, her echo was preliminarily reviewed demonstrating normal LV and RV function with mild valvular dysfunction. She does not appear to have a cardiac cause to her presenting symptoms. In regards to her heart rate, it was in the 60's at bedside and 50's while having her echo performed. While she is resting, heart rates are bradycardic which can be particularly normal for a young individual due to parasympathetic mediation. The nursing staff has been asked to walk her in the halls. As long as heart rate responds normally to activity, no further cardiac testing is warranted. We will sign off. Please call with questions.
--- NOTE | 2016-02-27 14:30 | Electrocardiograph Report ---
[facility] Test Date: 2016-02-25 Pat Name: SANGEETA ROSALES Department: 112 Room: 2A26 Gender: F Property And Equipment Clerk: FLORENCIO : 1990 Requested By: Carla Perea Order Number: [id number] Reading MD: Francisco Arias MD Measurements Intervals [place] Rate: 77 P: 35 FL: 154 QRS: 31 QRSD: 85 T: 17 QT: 403 QTc: 435 Interpretive Statements SINUS RHYTHM Electronically Signed On 02-27-16 14:28:47 EST by Francisco Arias MD
--- NOTE | 2016-02-27 14:32 | Electrocardiograph Report ---
[facility] Test Date: 2016-02-26 Pat Name: SANGEETA ROSALES Department: 112 Room: 2A26 Gender: F Manufacturing Lead: FLORENCIO : 1990 Requested By: Carla Perea Order Number: [id number] Reading MD: Francisco Arias MD Measurements Intervals [place] Rate: 83 P: 41 MI: 151 QRS: 32 QRSD: 84 T: 14 QT: 360 QTc: 400 Interpretive Statements SINUS RHYTHM WITH SINUS ARRHYTHMIA Electronically Signed On 02-27-16 14:31:21 EST by Francisco Arias MD
[2016-02-27] MEDS: amLODIPine 5 MG TABLET PO SCH (16:28)
[2016-02-27] MEDS ORDERED: *HR* LORazepam 0.5 MG TABLET PO ONE (18:36)
[2016-02-27 19:33] LABS: Phosphorous 2.6 mg/dL (2.3-4.7); Potassium 3.8 mEq/L (3.5-4.5)
[2016-02-27 20:06] LABS: Adenovirus F 40/41 PCR Not detected (Not detect); Astrovirus PCR Not detected (Not detect); C.difficile Toxin A/B by PCR Not detected (Not detect); Campylobacter by PCR Not detected (Not detect); Cryptosporidium by PCR Not detected (Not detect); Cyclospora cayetanensis PCR Not detected (Not detect); E. coli O157 by PCR Not detected (Not detect); Entamoeba histolytica PCR Not detected (Not detect); Enteroaggregative E.coli(EAEC) Not detected (Not detect); Enteropathogenic E.coli(EPEC) Not detected (Not detect); Enterotoxigenic E.coli (ETEC) Not detected (Not detect); Giardia lamblia PCR Not detected (Not detect); Norovirus GI/GII PCR Not detected (Not detect); Plesiomonas shigelloides PCR Not detected (Not detect); Rotavirus A PCR Not detected (Not detect); Salmonella PCR Not detected (Not detect); Sapovirus PCR Not detected (Not detect); Shig/EnteroinvasiveE coli EIEC Not detected (Not detect); Shigalike tox-prod E coli STEC Not detected (Not detect); Vibrio PCR Not detected (Not detect); Vibrio cholerae PCR Not detected (Not detect); Yersinia enterocolitica PCR Not detected (Not detect)
[2016-02-27] MEDS: Potassium Chloride Elixir 20 MEQ/15 ML UDC PO SCH (21:27)
[2016-02-28] MEDS: MetroNIDAZOLE 500 MG/100 ML 500 MG/100 ML BAG IVPB SCH ×2 (00:29→08:19)
[2016-02-28] MEDS: *HR* Morphine 2 MG/ML SYRINGE IVP SCH ×4 (00:38→12:21)
[2016-02-28] MEDS: Ipratropium/Albuterol Neb 3 ML IH SCH ×4 (03:31→14:54)
[2016-02-28 07:29] LABS: Hematocrit 35.5 % (35.3-44.9); Hemoglobin 11.5 g/dL (11.5-15.4); Mean Corpuscular HGB Conc 32.4 g/dL (31.6-35.5); Mean Corpuscular Hemoglobin 27.8 pg (28.0-33.3); Mean Corpuscular Volume 85.7 fL (83.0-100.0); Mean Platelet Volume 11.8 fL (9.4-12.4); Nucleated Red Blood Cells 0.2 /100 WBC (0); Platelet Count 144 K/mcL (140-400); Red Blood Count 4.14 M/mcL (3.82-4.97); Red Cell Distribution Width 14.4 % (11.5-14.5)
[2016-02-28 07:35] LABS: BUN/Creatinine Ratio 15 (6-26); Blood Urea Nitrogen 9 mg/dL (7-20); Calcium 8.7 mg/dL (8.6-10.8); Carbon Dioxide 20 mEq/L (19-29); Chloride 111 mEq/L (98-109); Glucose 229 mg/dL (70-99); Magnesium 1.9 mg/dL (1.6-2.6); Osmolality,Calculated 296 (280-300); Potassium 3.9 mEq/L (3.5-4.5); Sodium 140 mEq/L (136-145); eGFR For African Americans > 60 (> 60); eGFR For Non-African Americans > 60 (> 60)
[2016-02-28] MEDS: *HR* Heparin 5,000 UNIT/ML VIAL SQ SCH (07:35)
[2016-02-28 07:43] VITALS: BP 140/86
--- NOTE | 2016-02-28 08:02 | ECHO - Doppler Report ---
Echocardiogram Name: Saida Higuera Date of Study: 02/27/2016 Date: 1990 Ht: 61.0 in Medical Record#: [id number] Age: 25 Wt: 170.0 lb Gender: Female BSA: 1.76 Order #: [id number] Location: [facility] Room #: 2A26 Reading Physician: Haim Butler MD, [facility] Aids Nurse: Gretchen Grubbs Ordering Physician: Angie Osorio MD Primary Physician: None Indications: Pericarditis/Pericardial Effusion/Tamponade Impressions: Normal left ventricular size and systolic function, LVEF 55%. Normal left ventricular diastolic function. Normal right ventricular structure and function. No significant valvular dysfunction. No evidence of pulmonary hypertension. Left Ventricular Wall Motion: Rest Echo Findings All wall segments showed normal motion. Findings: Study Quality * Suboptimal echo windows. ECG Findings * Sinus bradycardia. Left Ventricle * Normal left ventricular size and systolic function, LVEF 55%. * Normal LV wall thickness. * Normal left ventricular diastolic function. Right Ventricle * Normal right ventricular structure and function. Left Atrium * Normal left atrial size. Right Atrium * Normal right atrial size. Aorta * Normally sized aortic root. Pericardium * There is no pericardial effusion present. IVC * The IVC is not well evaluated. Aortic Valve * Aortic valve not well visualized. * No aortic stenosis. * Trace aortic regurgitation. Mitral Valve * Normal mitral valve structure. * No mitral stenosis. * Trace mitral regurgitation. Tricuspid Valve * Tricuspid valve not well visualized. * No tricuspid stenosis. * Trace tricuspid regurgitation. * No evidence of pulmonary hypertension. Pulmonic Valve * Pulmonic valve is not well visualized. * No pulmonic stenosis. * Trace pulmonic regurgitation. History Hypertension Measurements: BP: 149/ 99 2D Normal Values RVIDd: 2.18 cm IVSd: 1.0 cm 0.6 - 1.0 cm LVIDd: 5.10 cm 3.7 - 5.6 cm LVPWd: 1.0 cm 0.6 - 1.1 cm LVIDs: 3.70 cm 1.5 - 3.6 cm AO: 2.50 cm < 4.0 cm LA volume: 43 Mitral Valve Peak E:1.36 m/sec Peak A:.68 m/sec E/A Ratio:2 Peak E' Lat Tee:16 cm/s Peak E' Med Tee:12 cm/s Tricuspid Valve TV Regurg Peak Grad: 28.00mmHg TV Regurg Peak Tee: 2.60m/sec Updated by Haim Butler MD, [facility] on 02/28/2016 7:58:11 AM electronically signed on 02/28/2016 7:59:21 AM with status of Final Wall Motion [place]: 1=Normal, 2=Hypokinesis, 3=Akinesis, 4=Dyskinesis, 5=Aneurysmal, 6=Hyperkinetic, X=Not Visualized (Blank)=Missing
[2016-02-28 08:12] LABS: Lymphocytes # 1.3 K/mcL (0.6-4.6); Neutrophils # 6.2 K/mcL (1.6-8.9); Platelet Estimate Normal (Normal)
[2016-02-28] MEDS: methylPREDNISolone 125 MG/2 ML VIAL IVP SCH (08:17)
[2016-02-28] MEDS: Potassium Chloride Elixir 20 MEQ/15 ML UDC PO SCH (08:18)
[2016-02-28] MEDS: Nicotine 14 MG PATCH.TD24 TD SCH (08:18)
[2016-02-28] MEDS: Gabapentin 300 MG CAPSULE PO SCH (08:18)
[2016-02-28] MEDS: Aspirin Enteric Coated 325 MG Tablet PO SCH (08:18)
[2016-02-28] MEDS: amLODIPine 5 MG TABLET PO SCH (08:18)
[2016-02-28] MEDS: Levofloxacin 750 MG/150 ML 750 MG/150 ML BAG IVPB SCH (08:19)
--- NOTE | 2016-02-28 10:01 | Electrocardiograph Report ---
[facility] Test Date: 2016-02-27 Pat Name: Saida Higuera Department: 112 Room: 2A26 Gender: F Employee Training Specialist: TAN : 1990 Requested By: Angie Osorio Order Number: [id number] Reading MD: Espinoza Hay Measurements Intervals [place] Rate: 66 P: 43 PA: 145 QRS: 22 QRSD: 89 T: 19 QT: 404 QTc: 417 Interpretive Statements SINUS RHYTHM POSSIBLE ANTERIOR MYOCARDIAL INFARCTION, OF INDETERMINATE AGE Electronically Signed On 02-28-16 09:59:30 EST by Espinoza Hay
--- NOTE | 2016-02-28 14:20 | Electrocardiograph Report ---
[facility] Test Date: 2016-02-27 Pat Name: SANGEETA ROSALES Department: 112 Room: 2A26 Gender: F Epic Ambulatory Analysts: : 1990 Requested By: Jayson Degroot Order Number: [id number] Reading MD: Espinoza Hay Measurements Intervals [place] Rate: 55 P: 31 DE: 147 QRS: 18 QRSD: 88 T: 21 QT: 460 QTc: 449 Interpretive Statements SINUS BRADYCARDIA WITH SINUS ARRHYTHMIA POSSIBLE ANTERIOR MYOCARDIAL INFARCTION, OF INDETERMINATE AGE Electronically Signed On 02-28-16 14:20:10 EST by Espinoza Hay
--- NOTE | 2016-02-28 15:09 | Discharge Summary ---
Date of Encounter: 02/28/16 Time of Encounter: 14:30 - Discharge Diagnosis (1) Pneumonia involving left lung Priority: Primary Status: Acute Qualifiers: Pneumonia type: due to unspecified organism Lung location: unspecified part of lung Qualified Code(s): J18.9 - Pneumonia, unspecified organism (2) Sepsis Priority: Primary Status: Acute Qualifiers: Sepsis type: sepsis due to unspecified organism Qualified Code(s): A41.9 - Sepsis, unspecified organism (3) Pleurisy Priority: Secondary Status: Acute (4) Hypophosphatemia Priority: Primary Status: Acute (5) Chest pain Priority: Secondary Status: Acute Qualifiers: Chest pain type: chest pain on breathing Qualified Code(s): R07.1 - Chest pain on breathing - Discharge Medications Prescriptions: Albuterol Sulfate [Albuterol Inhaler] 2 puff IH Q4HR PRN #1 hfa.aer.ad PRN Reason: Shortness Of Breath Amlodipine [Norvasc] 10 mg PO DAILY #30 tablet Levofloxacin 500 mg PO DAILY #7 tablet Nicotine Patch [Nicoderm] 14 mg TD DAILY #30 patch.td24 Omeprazole [PriLOSEC] 40 mg PO DAILY #30 capsule.dr Florian [Neutra-Phos] 1 each PO DAILY #20 powd.pack PredniSONE 40 mg PO DAILY #5 tablet Home Medications: Buspirone HCl [Buspar] 10 mg PO BID 02/25/16 [History] Gabapentin [Neurontin] 300 mg PO TID 02/25/16 [History] Quetiapine Fumarate [Seroquel] 50 mg PO HS 02/25/16 [History] Sertraline [Zoloft] 50 mg PO DAILY 02/25/16 [History] Albuterol Sulfate [Albuterol Inhaler] 2 puff IH Q4HR PRN #1 hfa.aer.ad 02/28/16 [Rx] Amlodipine [Norvasc] 10 mg PO DAILY #30 tablet 02/28/16 [Rx] Levofloxacin 500 mg PO DAILY #7 tablet 02/28/16 [Rx] Nicotine Patch [Nicoderm] 14 mg TD DAILY #30 patch.td24 02/28/16 [Rx] Omeprazole [PriLOSEC] 40 mg PO DAILY #30 capsule. 02/28/16 [Rx] Phos-NaK [Neutra-Phos] 1 each PO DAILY #20 powd.pack 02/28/16 [Rx] PredniSONE 40 mg PO DAILY #5 tablet 02/28/16 [Rx] Allergies/Adverse Reactions: Allergies azithromycin Adverse Reaction (Verified 02/25/16 16:43) Gastrointestinal Upset Procedures/tests Complete & Pending: Procedures Performed prior 72 hours Category Date Time Status CTA chest [CT angio chest] [CT] Stat Cat Scan 02/26/16 02:14 Completed EKG [ECG 12 lead ECG] [ECG] Routine Y 02/27/16 11:27 Completed EKG [ECG 12 lead ECG] [ECG] Stat Y 02/27/16 11:28 Completed EKG [ECG 12 lead ECG] [ECG] Stat Y 02/27/16 13:40 Completed EV echocardiogram Routine Y 02/27/16 11:20 Completed Date of admission: 02/25/16 21:23 Primary care physician: PCP NO Consults: 02/27/16 17:24 Consult to Cardiology [CONS] Routine Comment: Verbal order per hospitalist. Consulting Provider: Chiki Castro Reason for Consult: Chest pain Call Completed: Yes Discharging clinician: Angie Osorio - Patient Status Disposition: Home, Self-Care Condition: Good Overall status at discharge: patient is progressing back to baseline - Discharge Instructions Instructions: Albuterol (By breathing), Prednisone (By mouth), Omeprazole (By mouth), Nicotine (Absorbed through the skin), Amlodipine (By mouth), Levofloxacin (By mouth), Phosphate Supplement (By mouth), Chronic Hypertension ( DC), Pneumonia (DC) Follow Up With: [facility] [Outside] - 02/29/16 2:00 pm - Diet and Activity Activity: increase activity as tolerated Diet: low fat, low cholesterol Hospital course: 25 year old female with a past medical history of hypertension bipolar disorder , previous opioid dependency tobacco abuse Patient has been experiencing cough chest pain on inspiration congestion fever (103) headaches nausea vomiting diarrhea watery nonbloody for the past 2 days. She states she has been unable to tolerate oral intake. She denies any recent travel or sick contacts . She presented to the emergency department the above complaints. According to ED records upon presentation the patient was tachycardic with HR 140 temp 99.0 She was given IV fluids lactate was obtained as well as other labs. She has an elevated WBC 25 her urine was negative for UTI CXR with opacity in left mid and lower zone . She was given ATB, antiemetics and 2 Liter of IV fluid. Her vitals improved and she was admitted for further workup and evaluation. Presently the patient is complaining of chest pain on inspiration, she does not appear to be in any distress. Her BP was low at 97 systolic. Her lung sounds are diminished, her respirations are shallow. Patient was trying to avoiding taking deep breath because pain . CT chest no evidence of pulmonary embolism . Patient had severe hypophosphatemia replaced towice. Patient was started on Levaquin , Septic workup so far negative. During hospitalization patient was complaining of chest pain with some changes on EKG. Cardiac enzymes were negative cardiology was consulted and stated this is most likely artifact. Patient had episodes of bradycardia cardiology recommended to discontinue labetalol and clonidin, both can cause AVN block , recommended to starte Norvasc for hypertension . Start patient on steroid for her pruritus, Protonix for gastritis. Patient condition continued to improve during hospitalization patient today denies any chest pain or shortness of breath. Patient is feeling back to her baseline. Patient is a Dr. go home her son is sick. Cardiology agreed with discharge planning. Patient was discharged home in stable condition, with her multiple medication which can prolong QT discussed with pharmacist change Levaquin to Augmentin. - Time Spent with Patient Total time spent providing and/or coordinating discharge services: Greater than 30 minutes - Constitutional Vitals: Temp Pulse Resp BP Pulse Ox 98.1 F 50 16 140/86 98 02/28/16 07:42 02/28/16 07:42 02/28/16 14:56 02/28/16 07:42 02/28/16 14:56 General appearance: Present: mild distress, A&O X 3, answers questions appropriately - Head Head exam: Present: atraumatic, normocephalic - Respiratory Respiratory exam: Present: decreased breath sounds, rales (scattered Rales bilateral lung base). Absent: accessory muscle use, rhonchi, wheezes - GI/Abdominal GI/Abdominal exam: Present: normal bowel sounds, soft, no peritoneal signs. Absent: distended, tenderness
[2016-02-28] MEDS ORDERED: FLU VACC QS2016-17 36MOS UP/PF 0.5 ML SYRINGE IM ONE (15:42)
== END 2016-02-28 16:10 | disposition home or self-care (01) | DRG 720 ==
LOC: EMEROO 11:18 → 2ANU 11:18
PROVIDERS: ADMIT Internal Medicine; ATTEND Internal Medicine Endocrinology, Diabetes & Metabolism

== ENCOUNTER 2016-07-16 11:15 | Observation (INO) ==
[2016-07-16 11:46] LABS: Basophils % 0.6 %; Eosinophils # 0.1 K/mcL (0.0-0.6); Eosinophils % 3.7 %; Hematocrit 42.2 % (35.3-44.9); Hemoglobin 14.2 g/dL (11.5-15.4); Immature Granulocytes % 0.3 % (0-4); Lymphocytes # 0.8 K/mcL (0.6-4.6); Lymphocytes % 23.6 %; Mean Corpuscular HGB Conc 33.6 g/dL (31.6-35.5); Mean Corpuscular Hemoglobin 29.3 pg (28.0-33.3); Mean Platelet Volume 11.5 fL (9.4-12.4); Monocytes # 0.3 K/mcL (0.0-1.3); Monocytes % 8.6 %; Neutrophils # 2.1 K/mcL (1.6-8.9); Platelet Count 118 K/mcL (140-400); Red Blood Count 4.85 M/mcL (3.82-4.97); Red Cell Distribution Width 12.6 % (11.5-14.5); Segmented Neutrophils % 63.2 %
[2016-07-16 11:48] LABS: Bilirubin,Urine Small (Negative); Blood,Urine Negative (Negative); Glucose,Urine (UA) Normal (Normal); Ketones,Urine Trace mg/dL (Negative); Leukocyte Esterase,Urine Small (Negative); Nitrite,Urine Negative (Negative); Protein,Urine Negative (Neg-Trace); Specific Gravity,Urine 1.022 (1.010-1.025); Urobilinogen,Urine Normal (Normal)
[2016-07-16 11:50] LABS: Bacteria,Urine Few per hpf (None-Few); Hyaline Casts,Urine None Seen per lpf (None-Few); RBC,Urine 0-3 per hpf (0-3); Squamous Epithelial Cell,Urine Many per lpf (None-Few); WBC,Urine 0-3 per hpf (0-3)
[2016-07-16 12:08] LABS: BUN/Creatinine Ratio 8 (6-26); Carbon Dioxide 23 mEq/L (19-29); Chloride 109 mEq/L (98-109); Glucose 104 mg/dL (70-99); Potassium 3.7 mEq/L (3.5-4.5); Sodium 140 mEq/L (136-145); eGFR For African Americans > 60 (> 60); eGFR For Non-African Americans > 60 (> 60)
[2016-07-16 12:09] LABS: Alanine Aminotransferase 99 Units/L (0-55); Albumin 3.6 g/dL (3.5-5.0); Albumin/Globulin Ratio 1.1 (1.1-2.2); Alkaline Phosphatase 110 Units/L (38-126); Aspartate Amino Transferase 130 Units/L (5-34); Calcium 8.9 mg/dL (8.6-10.8); Globulin 3.2 g/dL (2.4-3.5); Lipase 91 Units/L (8-78); Osmolality,Calculated 288 (280-300); Total Protein 6.8 g/dL (6.0-8.3)
[2016-07-16 12:11] LABS: Bilirubin,Total 4.2 mg/dL (0.2-1.2); Blood Urea Nitrogen 5 mg/dL (7-20)
[2016-07-16] MEDS ORDERED: Ondansetron 4 MG/2 ML VIAL IVP ONE ×2 (12:18→14:24)
[2016-07-16] MEDS ORDERED: *HR* OxyCODONE/APAP 5/325 TABLET PO ONE (12:18)
[2016-07-16] MEDS ORDERED: 0.9 % Sodium Chloride 1,000 ML IVC ONE (12:18)
[2016-07-16 12:19] LABS: Clarity,Urine Slightly Hazy (Clear); Color,Urine Yellow (Yellow)
[2016-07-16] MEDS ORDERED: Ketorolac 15 MG/ML VIAL IVP ONE (12:39)
[2016-07-16 13:02] LABS: Mucus,Urine Few (Few)
--- NOTE | 2016-07-16 14:11 | Emergency Department Note ---
Disposition Clinical Impression: Acute cholecystitis Disposition: Admitted As Inpatient Condition: Good Referrals: Joe Roberto DO [Primary Care Provider] - Forms: Work/School Release, ED Satisfaction Letter Abdominal Pain HPI - General Chief Complaint: ED Abdominal Pain Stated Complaint: RUQ Pain Time Seen by Provider: 07/16/16 11:45 Source: patient, EMS Nursing Notes Reviewed: Yes Vital Signs Reviewed: Yes - History of Present Illness HPI Narrative: Patient comes with complaint of right upper quadrant abdominal pain has been going on for several months. Patient was seen at the facility for similar had an ultrasound done that show gallbladder sludge otherwise normal gallbladder. Patient states she has worsening pain return for reevaluation. Patient denies fevers or chills she does admit to some nausea. Pain Scale: 5 - Related Data Home Medications Medication Instructions Recorded Confirmed Buspirone HCl [Buspar] 10 mg PO BID 02/25/16 02/25/16 Gabapentin [Neurontin] 300 mg PO TID 02/25/16 02/25/16 Quetiapine Fumarate [Seroquel] 50 mg PO HS 02/25/16 02/25/16 Sertraline [Zoloft] 50 mg PO DAILY 02/25/16 02/25/16 Previous Rx's Medication Instructions Recorded Albuterol Sulfate [Albuterol 2 puff IH Q4HR PRN #1 [id number].aer.[id number] 02/28/16 Inhaler] Nicotine Patch [Nicoderm] 14 mg TD DAILY #30 patch.td24 02/28/16 Omeprazole [PriLOSEC] 40 mg PO DAILY #30 capsule. 02/28/16 Phos-NaK [Neutra-Phos] 1 each PO DAILY #20 powd.pack 02/28/16 amLODIPine [Norvasc] 10 mg PO DAILY #30 tablet 02/28/16 levoFLOXacin [Levofloxacin] 500 mg PO DAILY #7 tablet 02/28/16 predniSONE [PredniSONE] 40 mg PO DAILY #5 tablet 02/28/16 Metoclopramide [Reglan] 10 mg PO Q6HR 5 Days 05/24/16 Ibuprofen [Motrin] 800 mg PO Q8HR #30 tablet 06/06/16 Naproxen [Naprosyn] 500 mg PO BID PRN #20 tablet 07/15/16 Ondansetron HCl [Zofran] 4 mg PO Q6H PRN #10 tablet 07/15/16 Allergies Allergy/AdvReac Type Severity Reaction Status Date / Time azithromycin AdvReac Gastrointestinal Verified 07/15/16 12:22 Upset All systems ED: reviewed and negative except as stated. Abdominal Pain PMH - Past Medical History Medical history: Reports: hypertension Female Surgical History: Reports: [employer] history: Reports: bilateral tubal ligation Psychiatric history: Reports: anxiety, bipolar, depression - Social History Smoking status: Current every day smoker Alcohol use: Reports: none Drug use: Reports: marijuana Physical Exam - General Limitations: no limitations General appearance: alert, in no apparent distress - Head Head exam: atraumatic, normocephalic, normal inspection - Eye Eye exam: Present: normal appearance, PERRL, EOMI - ENT ENT exam: normal exam, normal oropharynx, mucous membranes moist - Neck Neck exam: Present: normal inspection, full ROM, trachea midline - Chest Chest inspection: Present: normal inspection, symmetric chest wall rise - Respiratory Respiratory exam: Present: normal lung sounds bilaterally - Cardiovascular Cardiovascular exam: Present: regular rate, normal rhythm, normal heart sounds - Abdominal Exam Abdominal exam: Present: tenderness Abdominal tenderness: Present: RUQ - Extremities Exam Extremities exam: Present: normal inspection, full ROM. Absent: tenderness, pedal edema - Back Exam Back exam: Present: normal inspection, full ROM. Absent: tenderness - Neurological Exam Neurological exam: Present: alert, oriented X3 - Psychiatric Psychiatric exam: Present: normal affect, normal mood - Skin Skin exam: Present: warm, dry, intact, normal color Course Vital Signs Temperature 98.0 F 07/16/16 11:17 Pulse Rate 64 07/16/16 11:17 Respiratory Rate 20 07/16/16 11:17 Blood Pressure 138/95 07/16/16 11:17 O2 Sat by Pulse Oximetry 99 07/16/16 11:17 Temperature 98.0 F 07/16/16 11:17 Pulse Rate 68 07/16/16 13:31 Respiratory Rate 16 07/16/16 13:31 Blood Pressure 118/58 07/16/16 13:31 O2 Sat by Pulse Oximetry 100 07/16/16 13:31 Oxygen Delivery Oxygen Delivery Room Air Abdominal Pain - Differential Diagnosis Differential Diagnosis: Likely: abdominal pain non-specific, abdominal pain mimics ectopic , acute appendicitis, diverticulitis, gastroenteritis, ischemic bowel, pancreatitis, small bowel obstruction - Lab Data Result diagrams: 07/16/16 11:35 07/16/16 11:35 Lab Results 07/16/16 07/16/16 07/16/16 Range/Units 11:31 11:31 11:35 WBC 3.3 L (4.3-11.1) K/mcL RBC 4.85 (3.82-4.97) M/mcL Hgb 14.2 (11.5-15.4) g/dL Hct 42.2 (35.3-44.9) % MCV 87.0 (83.0-100.0) fL MCH 29.3 (28.0-33.3) pg MCHC 33.6 (31.6-35.5) g/dL RDW 12.6 (11.5-14.5) % Plt Count 118 L (140-400) K/mcL MPV 11.5 (9.4-12.4) fL Immature Gran % 0.3 (0-4) % Seg Neutrophils % 63.2 % Lymphocytes % 23.6 % Monocytes % 8.6 % Eosinophils % 3.7 % Basophils % 0.6 % Neutrophils # 2.1 (1.6-8.9) K/mcL Lymphocytes # 0.8 (0.6-4.6) K/mcL Monocytes # 0.3 (0.0-1.3) K/mcL Eosinophils # 0.1 (0.0-0.6) K/mcL Basophils # 0.0 (0.0-0.2) K/mcL Sodium (136-145) mEq/L Potassium (3.5-4.5) mEq/L Chloride (98-109) mEq/L Carbon Dioxide (19-29) mEq/L BUN (7-20) mg/dL Creatinine (0.57-1.11) mg/dL Est GFR ( Amer) (> 60) Est GFR (Non-Af Amer) (> 60) BUN/Creatinine Ratio (6-26) Glucose (70-99) mg/dL Calculated Osmolality (280-300) Lactic Acid (0.5-2.2) mmol/L Calcium (8.6-10.8) mg/dL Total Bilirubin (0.2-1.2) mg/dL AST (5-34) Units/L ALT (0-55) Units/L Alkaline Phosphatase (38-126) Units/L Serum Total Protein (6.0-8.3) g/dL Albumin (3.5-5.0) g/dL Globulin (2.4-3.5) g/dL Albumin/Globulin Ratio (1.1-2.2) Lipase (8-78) Units/L Urine Color Yellow (Yellow) Urine Clarity Slightly Hazy (Clear) Urine pH 7.0 (5.0-8.0) pH Units Ur Specific Seale 1.022 (1.010-1.025) Urine Protein Negative (Neg-Trace) mg/dL Urine Glucose (UA) Normal (Normal) mg/dL Urine Ketones Trace H (Negative) mg/dL Urine Blood Negative (Negative) Urine Nitrite Negative (Negative) Urine Bilirubin Small H (Negative) Urine Urobilinogen Normal (Normal) mg/dL Ur Leukocyte Esterase Small H (Negative) Urine Microscopic RBC 0-3 (0-3) per hpf Urine Microscopic WBC 0-3 (0-3) per hpf Ur Squamous Epith Cells Many H (None-Few) per lpf Urine Bacteria Few (None-Few) per hpf Hyaline Casts None Seen (None-Few) per lpf Urine Mucus Few (Few) Urine Test Negative (Negative) 07/16/16 07/16/16 Range/Units 11:35 11:35 WBC (4.3-11.1) K/mcL RBC (3.82-4.97) M/mcL Hgb (11.5-15.4) g/dL Hct (35.3-44.9) % MCV (83.0-100.0) fL MCH (28.0-33.3) pg MCHC (31.6-35.5) g/dL RDW (11.5-14.5) % Plt Count (140-400) K/mcL MPV (9.4-12.4) fL Immature Gran % (0-4) % Seg Neutrophils % % Lymphocytes % % Monocytes % % Eosinophils % % Basophils % % Neutrophils # (1.6-8.9) K/mcL Lymphocytes # (0.6-4.6) K/mcL Monocytes # (0.0-1.3) K/mcL Eosinophils # (0.0-0.6) K/mcL Basophils # (0.0-0.2) K/mcL Sodium 140 (136-145) mEq/L Potassium 3.7 (3.5-4.5) mEq/L Chloride 109 (98-109) mEq/L Carbon Dioxide 23 (19-29) mEq/L BUN 5 L (7-20) mg/dL Creatinine 0.65 (0.57-1.11) mg/dL Est GFR ( Amer) > 60 (> 60) Est GFR (Non-Af Amer) > 60 (> 60) BUN/Creatinine Ratio 8 (6-26) Glucose 104 H (70-99) mg/dL Calculated Osmolality 288 (280-300) Lactic Acid 1.0 (0.5-2.2) mmol/L Calcium 8.9 (8.6-10.8) mg/dL Total Bilirubin 4.2 H D (0.2-1.2) mg/dL AST 130 H (5-34) Units/L ALT 99 H (0-55) Units/L Alkaline Phosphatase 110 (38-126) Units/L Serum Total Protein 6.8 (6.0-8.3) g/dL Albumin 3.6 (3.5-5.0) g/dL Globulin 3.2 (2.4-3.5) g/dL Albumin/Globulin Ratio 1.1 (1.1-2.2) Lipase 91 H (8-78) Units/L Urine Color (Yellow) Urine Clarity (Clear) Urine pH (5.0-8.0) pH Units Ur Specific Seale (1.010-1.025) Urine Protein (Neg-Trace) mg/dL Urine Glucose (UA) (Normal) mg/dL Urine Ketones (Negative) mg/dL Urine Blood (Negative) Urine Nitrite (Negative) Urine Bilirubin (Negative) Urine Urobilinogen (Normal) mg/dL Ur Leukocyte Esterase (Negative) Urine Microscopic RBC (0-3) per hpf Urine Microscopic WBC (0-3) per hpf Ur Squamous Epith Cells (None-Few) per lpf Urine Bacteria (None-Few) per hpf Hyaline Casts (None-Few) per lpf Urine Mucus (Few) Urine Test (Negative) - Radiology Data Radiology results reviewed: Yes I reviewed the patient's radiology results. Abdomen/Pelvis CT 07/16/16 12:17 IMPRESSION: 1. Potential findings of acute cholecystitis. Although no definite gallstones are seen on this study, gallstones are likely present given the sonographic appearance yesterday. Consider further evaluation with a nuclear medicine hepatobiliary scan. 2. Diffuse hepatic steatosis. D/ / Haim Teixeira MD / Haim Teixeira MD Interpreting Provider: Haim Teixeira MD Critical Care Time Total Critical Care Time: 30 Attestation: Critical care performed: Time is exclusive of separately billable procedures. Time includes: direct patient care, patient reassessment, coordination of patient care, interpretation of data (laboratory data, radiology data, and respiratory data), review of patient's medical records, medical consultation and documentation of patient care. Procedures included in critical care time: Procedures excluded from critical care time:
[2016-07-16] MEDS ORDERED: *HR* HYDROmorphone (PF) 1 MG/ML SYRINGE IVP ONE (14:24)
--- NOTE | 2016-07-16 14:40 | General Surg History&Physical ---
<Radha Lynn Deon - Last Filed: 07/16/16 15:12> Date of Encounter: 07/16/16 Time of Encounter: 14:00 Assessment and Plan (1) Acute cholecystitis Current Visit: Yes Status: Acute The assessment and plan as outlined above was discussed with the patient and/or family members who expressed understanding and agreement. All questions were answered. Clear liquids NPO after midnight IV fluids IV antibiotics Discussed the risks, benefits, alternatives and expected outcomes with the patient and she is in agreement to proceed to the operating room for a laparoscopic cholecystectomy with cholangiogram with Dr. Camarena in the next 24 hours IS every 1 hour while awake Repeat am labs (2) Hypertension Current Visit: No Status: Chronic The assessment and plan as outlined above was discussed with the patient and/or family members who expressed understanding and agreement. All questions were answered. Currently normotensive Continue home medication regimen Will continue to monitor and adjust as necessary Qualifiers: Hypertension type: unspecified secondary hypertension Qualified Code(s): I15.9 - Secondary hypertension, unspecified; I15 - Secondary hypertension (3) Tobacco abuse Current Visit: No Status: Chronic The assessment and plan as outlined above was discussed with the patient and/or family members who expressed understanding and agreement. All questions were answered. Smoking cessation education IS every 1 hour while awake Nicotine patch (4) Hyperbilirubinemia Current Visit: Yes Status: Acute The assessment and plan as outlined above was discussed with the patient and/or family members who expressed understanding and agreement. All questions were answered. TB- 4.2 Repeat labs in the am (5) Bipolar disorder Current Visit: Yes Status: Chronic The assessment and plan as outlined above was discussed with the patient and/or family members who expressed understanding and agreement. All questions were answered. Resume home medication regimen Qualifiers: Active/Remission status: remission status unspecified Qualified Code(s): F31.9 - Bipolar disorder, unspecified (6) DVT prophylaxis Current Visit: No Status: Acute The assessment and plan as outlined above was discussed with the patient and/or family members who expressed understanding and agreement. All questions were answered. Ambulate hallways TID EPCDs bilateral lower extremities for DVT prophylaxis History of Present Illness Chief complaint: RUQ abdominal pain HPI: Ms. Higuera is a 25 year old female with a past medical history significant for hypertension, bipolar disorder and opiate abuse. She presented to the ED for complaints of RUQ discomfort. She states that she has had intermittent RUQ pain for the past 2 months. She states that she has not been able to associate the pain with anything consistent such as food intake. She states that the pain returned suddenly yesterday and that it was the worst that it has been. She did report to the ED and was treated and released. She states that when she woke up this morning the pain unchanged and she experienced severe nausea/vomiting. She reports multiple episodes of vomiting without hematemesis of coffee ground emesis. Admits to episodes of diaphoresis but states that she did not take her temperature. Denies any diarrhea. Admits to constipation and states that her last bowel movement was 2 days ago. Admits to bloating. Denies heartburn, chest pains, or shortness of breath. Voiding without difficulty and states that her urine is darker than normal. We will admit the patient for further work-up and treatment. Past Med Surg Social Fam HX - Past Medical History Source: patient Medical history: hypertension Psychiatric history: anxiety, bipolar, depression - Past Surgical History Surgical History: other () - Social History Smoking Status: Current every day smoker Packs per day: 5 cigarettes per day Smokeless Tobacco Status: No Alcohol use: none Drug use: marijuana (occasionally), IVDU (history of heroin addiction- has not used in 2 years (currently being treated with Suboxone)) Current living situation: Home - Independent Activity Level: Independent ambulation - Family History Mother Adopted: No Living Status: Still Living Hx Family Cardiac Disorders: No Hx Family Respiratory Disorders: Yes (COPD) Hx Family Cancer: No Hx Family GI Disorders: No Hx Family Endocrine Disorder: No Hx Family Neuromuscular Disorders: No Hx Family Neurologic Disorders: No Hx Family HEENT Disorders: No Hx Family Autoimmune Disorders: No Medications and Allergies Gabapentin [Neurontin] 300 mg PO TID 02/25/16 [History] Quetiapine Fumarate [Seroquel] 100 mg PO HS 02/25/16 [History] Sertraline [Zoloft] 50 mg PO DAILY 02/25/16 [History] Omeprazole [PriLOSEC] 40 mg PO DAILY #30 capsule. 02/28/16 [Rx] Buprenorphine HCl/Naloxone HCl [Buprenorphin-Naloxon 8-2 mg Sl] 1 tab SL DAILY 07/16/16 [History] CloNIDine HCl [Kapvay] 0.5 tab PO DAILY 07/16/16 [History] Ziprasidone HCl [Geodon] 40 mg PO DAILY 07/16/16 [History] amLODIPine [Norvasc] 5 mg PO DAILY 07/16/16 [History] hydrOXYzine pamoate [HydrOXYzine Pamoate] 50 mg PO BID PRN 07/16/16 [History] Allergies azithromycin Adverse Reaction (Verified 07/15/16 12:22) Gastrointestinal Upset Review of Systems All systems PM: reviewed and no additional remarkable complaints except as stated (in the HPI) All systems PM: A 10-system review of systems was performed and is negative for pertinent findings except as documented above in the HPI. General Surgery Exam Initial Vital Signs Temp Pulse Resp BP Pulse Ox 98.0 F 64 20 138/95 99 07/16/16 11:17 07/16/16 11:17 07/16/16 11:17 07/16/16 11:17 07/16/16 11:17 - General physical appearance well developed, well nourished, moderate pain - Eyes normal ocular movement - ENT normal mucosa, atraumatic, normocephalic - Neck trachea midline - Respiratory normal respiratory effort, clear to auscultation - Cardiovascular Cardiovascular exam: Present: RRR - Abdomen Abdomen general surgery: Present: bowel sounds present, soft, tender Abdominal Tenderness: Present: RUQ - Integumentary Integumentary general surgery: Present: warm and dry - Neurologic Present: CN 2-12 grossly intact - Psychiatric Psychiatric general surgery: Present: appropriate, oriented to person, oriented to place, oriented to time, speech is normal, memory intact Results - Labs 07/16/16 11:35 07/16/16 11:35 Abnormal lab results WBC 3.3 K/mcL (4.3-11.1) L 07/16/16 11:35 Plt Count 118 K/mcL (140-400) L 07/16/16 11:35 BUN 5 mg/dL (7-20) L 07/16/16 11:35 Glucose 104 mg/dL (70-99) H 07/16/16 11:35 Total Bilirubin 4.2 mg/dL (0.2-1.2) H D 07/16/16 11:35 AST 130 Units/L (5-34) H 07/16/16 11:35 ALT 99 Units/L (0-55) H 07/16/16 11:35 Lipase 91 Units/L (8-78) H 07/16/16 11:35 Urine Ketones Trace mg/dL (Negative) H 07/16/16 11:31 Urine Bilirubin Small (Negative) H 07/16/16 11:31 Ur Leukocyte Esterase Small (Negative) H 07/16/16 11:31 Ur Squamous Epith Cells Many per lpf (None-Few) H 07/16/16 11:31 Diabetes panel 07/16/16 Range/Units 11:35 Sodium 140 (136-145) mEq/L Potassium 3.7 (3.5-4.5) mEq/L Chloride 109 (98-109) mEq/L Carbon Dioxide 23 (19-29) mEq/L BUN 5 L (7-20) mg/dL Creatinine 0.65 (0.57-1.11) mg/dL Glucose 104 H (70-99) mg/dL Calcium 8.9 (8.6-10.8) mg/dL AST 130 H (5-34) Units/L ALT 99 H (0-55) Units/L Alkaline Phosphatase 110 (38-126) Units/L Albumin 3.6 (3.5-5.0) g/dL Calcium panel 07/16/16 Range/Units 11:35 Calcium 8.9 (8.6-10.8) mg/dL Albumin 3.6 (3.5-5.0) g/dL Pituitary panel 07/16/16 Range/Units 11:35 Sodium 140 (136-145) mEq/L Potassium 3.7 (3.5-4.5) mEq/L Chloride 109 (98-109) mEq/L Carbon Dioxide 23 (19-29) mEq/L BUN 5 L (7-20) mg/dL Creatinine 0.65 (0.57-1.11) mg/dL Glucose 104 H (70-99) mg/dL Calcium 8.9 (8.6-10.8) mg/dL Adrenal panel 07/16/16 Range/Units 11:35 Sodium 140 (136-145) mEq/L Potassium 3.7 (3.5-4.5) mEq/L Chloride 109 (98-109) mEq/L Carbon Dioxide 23 (19-29) mEq/L BUN 5 L (7-20) mg/dL Creatinine 0.65 (0.57-1.11) mg/dL Glucose 104 H (70-99) mg/dL Calcium 8.9 (8.6-10.8) mg/dL Total Bilirubin 4.2 H D (0.2-1.2) mg/dL AST 130 H (5-34) Units/L ALT 99 H (0-55) Units/L Alkaline Phosphatase 110 (38-126) Units/L Albumin 3.6 (3.5-5.0) g/dL All other labs normal. - Imaging CT scan - abdomen: report reviewed CT scan - pelvis: report reviewed Additional studies: Abdomen/Pelvis CT 07/16/16 12:17 IMPRESSION: 1. Potential findings of acute cholecystitis. Although no definite gallstones are seen on this study, gallstones are likely present given the sonographic appearance yesterday. Consider further evaluation with a nuclear medicine hepatobiliary scan. 2. Diffuse hepatic steatosis. D/ / Haim Teixeira MD / Haim Teixeira MD Interpreting Provider: Haim Teixeira MD - Attending Attestation I examined this patient and my medical decision-making was reviewed with the LARD REFINER/PA/Advanced Practice Nurse/Resident Physician. I agree with the documented findings, disposition and treatment plan as described except to the extent set forth below. <Constanza Camarena - Last Filed: 07/17/16 10:12> Date of Encounter: 07/16/16 Time of Encounter: 17:30 Assessment and Plan (1) Acute cholecystitis Current Visit: Yes Status: Acute The assessment and plan as outlined above was discussed with the patient and/or family members who expressed understanding and agreement. All questions were answered. (2) Hyperbilirubinemia Current Visit: Yes Status: Acute The assessment and plan as outlined above was discussed with the patient and/or family members who expressed understanding and agreement. All questions were answered. (3) DVT prophylaxis Current Visit: No Status: Acute The assessment and plan as outlined above was discussed with the patient and/or family members who expressed understanding and agreement. All questions were answered. History of Present Illness HPI: Ms. Higuera is a 25 year old female who has been having RUQ pain off and on for the last 3 months. Her pain sometimes radiates into her back. The pain is stabbing and sharp in nature. Her symptoms are occuring more frequent and with longer duration. She presented to the ED the night before admission. US was done and showed stones, no wall thickening or pericholecystic fluid, cbd 3 mm. Tbili was 1.9. She was sent home but returned later in the day due to unrelenting pain and nausea and vomiting. CT scan was done showing GB distention , wall thickening, Tbili 4.3. Review of Systems All systems PM: reviewed and no additional remarkable complaints except as stated All systems PM: A 10-system review of systems was performed and is negative for pertinent findings except as documented above in the HPI. General Surgery Exam Initial Vital Signs Temp Pulse Resp BP Pulse Ox 98.0 F 64 20 138/95 99 07/16/16 11:17 07/16/16 11:17 07/16/16 11:17 07/16/16 11:17 07/16/16 11:17 - General physical appearance well developed, well nourished, no distress, moderate pain - Eyes PERRL, normal ocular movement - ENT normal mucosa, atraumatic - Neck trachea midline - Respiratory normal expansion, normal respiratory effort - Cardiovascular Cardiovascular exam: Present: RRR - Abdomen Abdomen general surgery: Present: bowel sounds present, soft, tender. Absent: guarding, rebound Abdominal Tenderness: Present: RUQ - Integumentary Integumentary general surgery: Present: warm and dry, no abnormal pigmentation - Neurologic Present: CN 2-12 grossly intact - Musculoskeletal Present: normal gait, normal posture - Psychiatric Psychiatric general surgery: Present: A&Ox3, speech is normal Results - Labs 07/17/16 05:24 07/17/16 05:24 Abnormal lab results WBC 2.9 K/mcL (4.3-11.1) L 07/17/16 05:24 Plt Count 108 K/mcL (140-400) L 07/17/16 05:24 Neutrophils # 1.5 K/mcL (1.6-8.9) L 07/17/16 05:24 Chloride 110 mEq/L (98-109) H 07/17/16 05:24 BUN 4 mg/dL (7-20) L 07/17/16 05:24 Calcium 8.3 mg/dL (8.6-10.8) L 07/17/16 05:24 Total Bilirubin 3.6 mg/dL (0.2-1.2) H 07/17/16 05:24 Direct Bilirubin 2.7 mg/dL (0.0-0.5) H 07/17/16 05:24 AST 101 Units/L (5-34) H 07/17/16 05:24 ALT 85 Units/L (0-55) H 07/17/16 05:24 Albumin 3.1 g/dL (3.5-5.0) L 07/17/16 05:24 Lipase 91 Units/L (8-78) H 07/16/16 11:35 Urine Ketones Trace mg/dL (Negative) H 07/16/16 11:31 Urine Bilirubin Small (Negative) H 07/16/16 11:31 Ur Leukocyte Esterase Small (Negative) H 07/16/16 11:31 Ur Squamous Epith Cells Many per lpf (None-Few) H 07/16/16 11:31 Diabetes panel 07/17/16 Range/Units 05:24 Sodium 139 (136-145) mEq/L Potassium 3.6 (3.5-4.5) mEq/L Chloride 110 H (98-109) mEq/L Carbon Dioxide 24 (19-29) mEq/L BUN 4 L (7-20) mg/dL Creatinine 0.62 (0.57-1.11) mg/dL Glucose 82 (70-99) mg/dL Calcium 8.3 L (8.6-10.8) mg/dL AST 101 H (5-34) Units/L ALT 85 H (0-55) Units/L Alkaline Phosphatase 101 (38-126) Units/L Albumin 3.1 L (3.5-5.0) g/dL Calcium panel 07/17/16 Range/Units 05:24 Calcium 8.3 L (8.6-10.8) mg/dL Albumin 3.1 L (3.5-5.0) g/dL Pituitary panel 07/17/16 Range/Units 05:24 Sodium 139 (136-145) mEq/L Potassium 3.6 (3.5-4.5) mEq/L Chloride 110 H (98-109) mEq/L Carbon Dioxide 24 (19-29) mEq/L BUN 4 L (7-20) mg/dL Creatinine 0.62 (0.57-1.11) mg/dL Glucose 82 (70-99) mg/dL Calcium 8.3 L (8.6-10.8) mg/dL Adrenal panel 07/17/16 Range/Units 05:24 Sodium 139 (136-145) mEq/L Potassium 3.6 (3.5-4.5) mEq/L Chloride 110 H (98-109) mEq/L Carbon Dioxide 24 (19-29) mEq/L BUN 4 L (7-20) mg/dL Creatinine 0.62 (0.57-1.11) mg/dL Glucose 82 (70-99) mg/dL Calcium 8.3 L (8.6-10.8) mg/dL Total Bilirubin 3.6 H (0.2-1.2) mg/dL AST 101 H (5-34) Units/L ALT 85 H (0-55) Units/L Alkaline Phosphatase 101 (38-126) Units/L Albumin 3.1 L (3.5-5.0) g/dL All other labs normal. - Imaging CT scan - abdomen: report reviewed, image reviewed CT scan - pelvis: report reviewed, image reviewed - Attending Attestation I examined this patient and my medical decision-making was reviewed with the LARD REFINER/PA/Advanced Practice Nurse/Resident Physician. I agree with the documented findings, disposition and treatment plan as described except to the extent set forth below.
[2016-07-16] MEDS ORDERED: Naloxone 0.4 MG/ML INJ IVP PRN (14:52)
[2016-07-16] MEDS ORDERED: *HR* OxyCODONE/APAP 10/325 TABLET PO PRN (14:55)
[2016-07-16] MEDS ORDERED: Ipratropium/Albuterol Neb 3 ML IH PRN (14:58)
[2016-07-16] MEDS: 0.9 % Sodium Chloride 1,000 ML IVC SCH (16:09)
[2016-07-16] MEDS: Nicotine 14 MG PATCH.TD24 TD SCH (16:09)
[2016-07-16] MEDS: cefOXitin 2,000 MG in D5% in Water (Mini-Bag+) 100 ML IVPB SCH (16:10)
--- NOTE | 2016-07-16 19:26 | Anesthesia Evaluation PreOp ---
Date of Encounter: 07/16/16 Time of Encounter: 21:59 - Past History Planned Operation: Laparoscopic Cholecystectomy Cardiac History: HTN Pulmonary History: Smoker (10 years), Snore [employer] History: Denies Any Significant HX Other Medical History: Hepatic (hepatitis C), GERD, Other (bipolar/anxiety) Anesthesia History: No Prior Anesthetic Complications, Past Anesthesia Alcohol Use: none Drug use: marijuana, IVDU (H/O heroin use quit 2 years ago, currently on suboxone therapy (1 year)) Medications and Allergies Gabapentin [Neurontin] 300 mg PO TID 02/25/16 [History] Quetiapine Fumarate [Seroquel] 100 mg PO HS 02/25/16 [History] Sertraline [Zoloft] 50 mg PO DAILY 02/25/16 [History] Omeprazole [PriLOSEC] 40 mg PO DAILY #30 capsule. 02/28/16 [Rx] Buprenorphine HCl/Naloxone HCl [Buprenorphin-Naloxon 8-2 mg Sl] 1 tab SL DAILY 07/16/16 [History] CloNIDine HCl [Kapvay] 0.5 tab PO DAILY 07/16/16 [History] Ziprasidone HCl [Geodon] 40 mg PO DAILY 07/16/16 [History] amLODIPine [Norvasc] 5 mg PO DAILY 07/16/16 [History] hydrOXYzine pamoate [HydrOXYzine Pamoate] 50 mg PO BID PRN 07/16/16 [History] Allergies azithromycin Adverse Reaction (Verified 07/15/16 12:22) Gastrointestinal Upset - Meds/Allergy Pre-op Review Medications Reviewed: Yes Allergies Reviewed: Yes Beta Blockers on Current Med List: No Anesthesia Results - Labs 07/16/16 11:35 07/16/16 11:35 - Imaging EKG: report reviewed (02/27/2016 SB with SA, possible anterior infarct) Additional studies: 02/27/2016 Echo LVEF 55% no significant valvular dysfunction Anesthesia Exam Height: 5'2''/1.57 m Weight: 160 lbs/72.575 kg Pain Scale: 0 Pain Scale Used: Numeric (1 - 10) - HEENT Pupil (Motor): EOMI Mallampati: II Teeth: Normal Oral Opening: Greater than 3 - [employer] LOC: Oriented [employer] Motor: Normal RUE, Normal LUE, Normal RLE, Normal LLE, Normal Face [employer] Sensory: Normal: RUE, LUE, RLE, LLE, Face - Cardiac Rhythm: Regular Murmur: None - Pulmonary Breath Sounds: bilateral Clear Respiratory Effort: Symmetrical Anesthesia Assess/Plan ASA Score: 3 Modified Farida Scale for Level of Consciousness: Cooperative, oriented, and tranquil Anesthetic Plan: General Monitoring Plan: Standard Monitors Recovery Plan: PACU
[2016-07-16] MEDS: Gabapentin 400 MG CAPSULE PO SCH (21:26)
[2016-07-17] MEDS: Ondansetron 4 MG/2 ML VIAL IVP PRN ×2 (00:56→16:06)
[2016-07-17] MEDS: cefOXitin 2,000 MG in D5% in Water (Mini-Bag+) 100 ML IVPB SCH ×4 (00:56→23:31)
[2016-07-17] MEDS: *HR* HYDROmorphone (PF) 1 MG/ML SYRINGE IVP PRN ×4 (05:41→22:07)
[2016-07-17 05:43] LABS: Basophils % 0.4 %; Eosinophils # 0.1 K/mcL (0.0-0.6); Eosinophils % 3.2 %; Hematocrit 39.5 % (35.3-44.9); Hemoglobin 12.8 g/dL (11.5-15.4); Immature Granulocytes % 0.4 % (0-4); Lymphocytes % 35.8 %; Mean Corpuscular HGB Conc 32.4 g/dL (31.6-35.5); Mean Corpuscular Hemoglobin 28.5 pg (28.0-33.3); Mean Platelet Volume 12.1 fL (9.4-12.4); Monocytes # 0.2 K/mcL (0.0-1.3); Monocytes % 7.7 %; Neutrophils # 1.5 K/mcL (1.6-8.9); Platelet Count 108 K/mcL (140-400); Red Blood Count 4.49 M/mcL (3.82-4.97); Red Cell Distribution Width 12.8 % (11.5-14.5); Segmented Neutrophils % 52.5 %
[2016-07-17 05:57] LABS: Alanine Aminotransferase 85 Units/L (0-55); Albumin 3.1 g/dL (3.5-5.0); Albumin/Globulin Ratio 1.1 (1.1-2.2); Alkaline Phosphatase 101 Units/L (38-126); Aspartate Amino Transferase 101 Units/L (5-34); BUN/Creatinine Ratio 6 (6-26); Bilirubin,Indirect 0.9 mg/dL (0.0-1.2); Bilirubin,Total 3.6 mg/dL (0.2-1.2); Calcium 8.3 mg/dL (8.6-10.8); Carbon Dioxide 24 mEq/L (19-29); Chloride 110 mEq/L (98-109); Globulin 2.9 g/dL (2.4-3.5); Glucose 82 mg/dL (70-99); Osmolality,Calculated 284 (280-300); Potassium 3.6 mEq/L (3.5-4.5); Sodium 139 mEq/L (136-145); eGFR For African Americans > 60 (> 60); eGFR For Non-African Americans > 60 (> 60)
[2016-07-17 06:03] LABS: Bilirubin,Direct 2.7 mg/dL (0.0-0.5); Blood Urea Nitrogen 4 mg/dL (7-20)
[2016-07-17] MEDS: Nicotine 14 MG PATCH.TD24 TD SCH (07:37)
[2016-07-17] MEDS: 0.9 % Sodium Chloride 1,000 ML IVC SCH ×2 (07:37→22:07)
[2016-07-17] MEDS: Gabapentin 400 MG CAPSULE PO SCH ×2 (07:37→15:45)
[2016-07-17] MEDS ORDERED: amLODIPine 5 MG TABLET PO SCH (09:00)
--- NOTE | 2016-07-17 11:01 | Cardiology Consult Note ---
Date of Encounter: 07/17/16 Time of Encounter: 11:12 Assessment and Plan (1) Sinus bradycardia Current Visit: Yes Status: Acute No syncope or anginal symptoms. Occurred during episode of abdominal pain - appears to be a vagal response. Would note that she may be prone to vagal responses such as that induced with lap oren, so be prepared to pace her (recommend setting of HR 40) and have atropine/dopamine ready. Acceptable intermediate risk for intermediate risk surgery. (2) Acute cholecystitis Current Visit: Yes Status: Acute plan for cholecystectomy Discussion w patient/family: The assessment and plan as outlined above was discussed with the patient and/or family members who expressed understanding and agreement. All questions were answered. Thank you for involving us in the care of your patient. Please call with any questions. History of Present Illness Consult date: 07/17/16 Consult reason: bradycardia History of present illness: Ms. Higuera is a 25 year old female with history of HTN but no cardiac history or bradycardia presents with abdominal pain with findings of acute cholecystitis and plans for cholecystectomy. She had discomfort today and was noted to have HR in the 40s and as low as 38 by EKG. She denied any chest/jaw/ arm discomfort, dyspnea, or presyncope. She walks a mile daily without limitations or anginal symptoms. Past Med Surg Social Fam HX - Past Medical History Medical history: hypertension Psychiatric history: anxiety, bipolar, depression - Past Surgical History Surgical History: , other - Social History Smoking Status: Current every day smoker Packs per day: 5 cigarettes per day Smokeless Tobacco Status: No Alcohol use: none Drug use: marijuana, IVDU (H/O heroin use quit 2 years ago, currently on suboxone therapy (1 year)) - Family History Mother Adopted: No Living Status: Still Living Hx Family Cardiac Disorders: No Hx Family Respiratory Disorders: Yes (COPD) Hx Family Cancer: No Hx Family GI Disorders: No Hx Family Endocrine Disorder: No Hx Family Neuromuscular Disorders: No Hx Family Neurologic Disorders: No Hx Family HEENT Disorders: No Hx Family Autoimmune Disorders: No Medications and Allergies Gabapentin [Neurontin] 300 mg PO TID 02/25/16 [History] Quetiapine Fumarate [Seroquel] 100 mg PO HS 02/25/16 [History] Sertraline [Zoloft] 50 mg PO DAILY 02/25/16 [History] Omeprazole [PriLOSEC] 40 mg PO DAILY #30 capsule. 02/28/16 [Rx] Buprenorphine HCl/Naloxone HCl [Buprenorphin-Naloxon 8-2 mg Sl] 1 tab SL DAILY 07/16/16 [History] CloNIDine HCl [Kapvay] 0.5 tab PO DAILY 07/16/16 [History] Ziprasidone HCl [Geodon] 40 mg PO DAILY 07/16/16 [History] amLODIPine [Norvasc] 5 mg PO DAILY 07/16/16 [History] hydrOXYzine pamoate [HydrOXYzine Pamoate] 50 mg PO BID PRN 07/16/16 [History] Allergies azithromycin Adverse Reaction (Verified 07/15/16 12:22) Gastrointestinal Upset All Systems Review: A 10-system review of systems was performed and is negative for pertinent findings except as documented above in the HPI. - Constitutional Constitutional: chills, no frequent falls, no malaise - EENT Eyes: no blurred vision, no loss of vision Nose, mouth and throat: no bleeding gums, no epistaxis - Cardiovascular Cardiovascular: no chest pain at rest, no chest pain with exertion - Respiratory Respiratory: no dyspnea, no hemoptysis - Gastrointestinal Gastrointestinal: abdominal pain, no coffee ground emesis, no hematemesis - Genitourinary Genitourinary: no dysuria, no hematuria - Musculoskeletal Musculoskeletal: no abnormal gait, no arthralgias - Integumentary Integumentary: no erythema, no rash - Neurological Neurological: no abnormal speech, no focal weakness - Psychiatric Psychiatric: no anxiety, no depression - Hematological/Lymphatic Hematologic/Lymphatic: no easy bleeding, no easy bruising Physical Examination Vital Signs, Last 4 Hours Temp Pulse Resp BP Pulse Ox 07/17/16 07:18 97.8 F 42 14 146/79 97 General: Conversant HEENT: Atraumatic Neck: No JVD Cardiac: Other (cande s1 s2) Lungs: Normal Breath Sounds Neuro: Alert and responsive Abdomen: Soft Skin: No rashes noted on visualized skin Musculoskeletal: No Chest Wall Tenderness Extremities: No Edema Results 07/17/16 05:24 07/17/16 05:24 Lab Results 07/17/16 07/17/16 05:24 05:24 WBC 2.9 L Hgb 12.8 Hct 39.5 Plt Count 108 L Sodium 139 Potassium 3.6 Chloride 110 H Carbon Dioxide 24 BUN 4 L Creatinine 0.62 Glucose 82 Calcium 8.3 L Total Bilirubin 3.6 H AST 101 H ALT 85 H Alkaline Phosphatase 101 - EKG Interpretation EKG results cardiology: personally reviewed (sinus bradycardia nml qt) Consult Discharge Plan - Plan Referrals: Joe Roberto DO [Primary Care Provider] -
[2016-07-17] MEDS ORDERED: Lidocaine -MPF 4% 5 ML AMPUL ONE (16:18)
[2016-07-17] MEDS ORDERED: *HR* FentaNYL (PF) 100 MCG/2 ML VIAL ONE ×2 (16:18→18:36)
[2016-07-17] MEDS ORDERED: *HR* Succinylcholine 200 MG/10 ML VIAL IVP ONE (16:18)
[2016-07-17] MEDS ORDERED: *HR* Rocuronium Bromide 50 MG/5 ML VIAL ONE (16:18)
[2016-07-17] MEDS ORDERED: Dexamethasone 4 MG/ML VIAL ONE (16:18)
[2016-07-17] MEDS ORDERED: Neostigmine Methylsulfate 3 MG/3 ML SYRINGE ONE (16:18)
[2016-07-17] MEDS ORDERED: Ondansetron 4 MG/2 ML VIAL ONE (16:18)
[2016-07-17] MEDS ORDERED: *HR* Propofol 200 MG/20 ML VIAL IVP ONE (16:19)
[2016-07-17] MEDS ORDERED: Lidocaine -MPF 2% 2 ML VIAL ONE (16:19)
[2016-07-17] MEDS ORDERED: *HR* Promethazine 25 MG/ML VIAL IVP PRN (16:23)
[2016-07-17] MEDS ORDERED: *HR* HYDROmorphone (PF) 1 MG/ML SYRINGE IVP PRN (16:23)
--- NOTE | 2016-07-17 17:34 | Electrocardiograph Report ---
[address] [address] Test Date: 2016-07-17 Pat Name: Saida Higuera Department: 115 Room: 3A46 Gender: F Video Surveillance Technician: JENNIFER : 1990 Requested By: Aline Degroot Order Number: [id number] Reading MD: Radha Hay Measurements Intervals [place] Rate: 38 P: 45 NV: 159 QRS: 36 QRSD: 87 T: 30 QT: 453 QTc: 374 Interpretive Statements SINUS BRADYCARDIA Electronically Signed On 07-17-2016 17:32:56 EDT by Radha Hay
[2016-07-17] MEDS ORDERED: *HR* Morphine 10 MG/ML VIAL ONE (19:18)
--- NOTE | 2016-07-17 19:33 | Operative Note ---
Date of procedure: 07/17/16 Pre-op diagnosis: acute cholecystitis Post-op diagnosis: same Procedure: Laparoscopic cholecystectomy with intraoperative cholangiograms Complications: none immediate Anesthesia: GETA, local Local Anesthetics: 0.5% Sensorcaine HCL SubQ (cc) (30), Isovue 300 Intravenous ( cc) (17) Surgeon: Constanza Camarena Pocket Setter: Paulina Brandon Estimated blood loss (cc): 5 Specimen: gallbladder and contents Condition: stable Disposition: PACU Procedure in Detail: The patient was brought into the operating suite and placed supine on the operating table. Sign-in was performed and everyone was in agreement. Anesthesia was induced and patient was endotracheally intubated by anesthesia without incident and they also placed an OG tube. The abdomen was prepped and draped in the usual sterile fashion. A timeout was performed again everyone was in agreement. A supraumbilical incision was made through the skin into the subcutaneous tissue with an 11 blade. Towel clamps were placed on either side of the umbilicus for retraction. S retractors were used to dissect down to the anterior abdominal wall linea alba fascia. A Veress needle was placed through this incision and a water drop test confirmed placement and the abdomen was insufflated. The abdomen was entered with a 5 mm 0 degree laparoscope on a 5 mm X-dwight trocar. The area and entry was visualized was no bleeding and no apparent bowel injury. A 5 mm subxiphoid port was placed under direct visualization after first incising the skin with an 11 blade. A right upper quadrant subcostal position midclavicular line 5 mm port was placed under direct visualization after first incising skin with 11 blade. The laparoscope was placed in this and we exchanged the supraumbilical port for a 12 mm port under direct visualization. The last 5 mm port was placed in the right upper quadrant subcostal position anterior axillary line after first incising the skin with an 11 blade. The patient was placed in steep reverse Trendelenburg left side down position. The dome of the gallbladder was grasped and retracted cephalad. Omental adhesions to the body and infundibulum of the gallbladder were taken down bluntly with the [place]. The infundibulum was grasped and retracted laterally. Using the [place] we dissected out the cystic duct and cystic artery. Two 5 mm Hemoclip were placed proximally on the cystic artery and one distally. A 5 mm Hemoclip was placed proximally on the cystic duct. The cystic duct was partially transected with curved scissors. Using the Maya clamp, the cholangiocatheter was introduced into the partially transected cystic duct with the [place]. A metal 5 mm hemoclip was placed across the proximal cystic duct and the cholangiocatheter. The catheter flushed easily. The patient was placed in Trendelenberg position. Cholangiograms were obtained showing contrast up into the left and right intrahepatic ducts down through the common hepatic and common bile duct into the duodenum. 17cc of Isovue was used for the cholangiograms patient was returned to reverse Trendelenburg left side down position. The clip on the cholangiocatheter and proximal cystic duct was removed as well as the cholangiocatheter. Three 5 mm hemoclips were placed distally on the cystic duct and it was transected with curved scissors. The cystic artery was transected. The gallbladder was removed off the cystic plate with the Bovie. Any bleeding points were stopped with the Bovie. The gallbladder was placed in a laparoscopic Endo Catch bag and removed via the supraumbilical incision site. The inferior edge of the liver was bluntly retracted cephalad and the cystic plate was copiously irrigated with sterile saline. There was no bleeding or apparent bile leak from the cystic plate and the clips on the cystic artery and duct were intact. All irrigation was suctioned free from the abdomen. All insufflation was suctioned free from the abdomen and the ports removed. The abdominal wall at the supraumbilical incision site was closed with a 0 Vicryl [id number] stitch. 30 mL of 0.5% Marcaine was injected subcutaneously at the 4 port sites. The skin at the three 5 mm port sites were closed with 4-0 Monocryl interrupted subcuticular stitches. The skin at the supraumbilical incision site was closed with a 4-0 Monocryl running subcuticular stitch. Steri-Strips were applied to all wounds. The patient was awoken in the operating suite having tolerated the procedure well and were taken to PACU in stable condition after all lap and ensuring counts were correct at the end of the case.
[2016-07-17] MEDS ORDERED: *HR* Midazolam HCl 2 MG/2 ML VIAL ONE (19:42)
--- NOTE | 2016-07-17 21:01 | Anesthesia Evaluation Post Op ---
Date of Encounter: 07/17/16 Time of Encounter: 20:58 - Vital Signs Vital Signs: Vital Signs/O2 Sat, Most Current Temp Pulse Resp BP Pulse Ox 97.9 F 79 20 170/74 100 07/17/16 20:30 07/17/16 20:40 07/17/16 20:40 07/17/16 20:40 07/17/16 20:40 - Lungs Lungs: Clear Ascult./Percussion - Airway Airway: Non-obstructed - Cardiovascular Regular Rate - Mental Status Mental Status: Alert & Oriented, Answers Appropriately - Nausea Vomiting Nausea Vomiting: Not Present - Hydration Hydration: NPO, Has not voided - Discharge PostOp Status: Transfer Patient to floor
[2016-07-17] MEDS ORDERED: Naloxone 0.4 MG/ML INJ IVP PRN (21:48)
[2016-07-17] MEDS ORDERED: Ondansetron 4 MG/2 ML VIAL IVP PRN (21:48)
[2016-07-17] MEDS ORDERED: Ipratropium/Albuterol Neb 3 ML IH PRN (21:48)
[2016-07-17] MEDS: *HR* OxyCODONE/APAP 10/325 TABLET PO PRN (23:30)
[2016-07-18] MEDS: *HR* HYDROmorphone (PF) 1 MG/ML SYRINGE IVP PRN ×5 (02:08→20:54)
[2016-07-18 05:28] LABS: Basophils % 0.3 %; Hematocrit 46.2 % (35.3-44.9); Immature Granulocytes % 0.3 % (0-4); Lymphocytes # 0.4 K/mcL (0.6-4.6); Lymphocytes % 9.9 %; Mean Corpuscular HGB Conc 32.5 g/dL (31.6-35.5); Mean Corpuscular Hemoglobin 28.8 pg (28.0-33.3); Mean Corpuscular Volume 88.7 fL (83.0-100.0); Mean Platelet Volume 12.4 fL (9.4-12.4); Monocytes # 0.1 K/mcL (0.0-1.3); Monocytes % 2.9 %; Neutrophils # 3.2 K/mcL (1.6-8.9); Platelet Count 128 K/mcL (140-400); Red Blood Count 5.21 M/mcL (3.82-4.97); Red Cell Distribution Width 12.6 % (11.5-14.5); Segmented Neutrophils % 86.6 %
[2016-07-18 05:32] LABS: Bilirubin,Indirect 1.5 mg/dL (0.0-1.2); Globulin 4.2 g/dL (2.4-3.5)
[2016-07-18] MEDS: *HR* OxyCODONE/APAP 10/325 TABLET PO PRN ×2 (05:36→18:51)
[2016-07-18 06:05] LABS: Bilirubin,Direct 3.8 mg/dL (0.0-0.5); Bilirubin,Total 5.3 mg/dL (0.2-1.2); Total Protein 8.2 g/dL (6.0-8.3)
[2016-07-18] MEDS: Gabapentin 400 MG CAPSULE PO SCH ×3 (07:48→20:53)
[2016-07-18] MEDS: amLODIPine 5 MG TABLET PO SCH (07:48)
[2016-07-18] MEDS: cefOXitin 2,000 MG in D5% in Water (Mini-Bag+) 100 ML IVPB SCH (07:49)
[2016-07-18] MEDS: Nicotine 14 MG PATCH.TD24 TD SCH (07:49)
--- NOTE | 2016-07-18 10:51 | General Surgery Progress Note ---
Date of Encounter: 07/18/16 Time of Encounter: 17:10 - Assessment and Plan (1) Acute cholecystitis Current Visit: Yes Status: Acute POD#1 Laparoscopic cholecystectomy with intraoperative cholangiograms with - which demonstrated no CBD stone Patient has elevated total bilirubin at 5.3, elevated AST 184, ALT 136, alkaline phosphatase 146 No jaundice noticed exam, no scleral icterus noted Patient has mild the diffuse postoperative abdominal soreness, bowel sounds present Patient has not had any bowel movement or flatus, denies nausea or vomiting Will monitor patient throughout the day and overnight and recheck her LFTs in the morning, if trending down possible discharge tomorrow Plan: -Continue clear liquid diet, advance as tolerates -A.m. labs -Pain control and supportive care -IS every 1 hour while awake (2) Hypertension Current Visit: No Status: Chronic Currently normotensive Continue home medication regimen Will continue to monitor and adjust as necessary Qualifiers: Hypertension type: unspecified secondary hypertension Qualified Code(s): I15.9 - Secondary hypertension, unspecified; I15 - Secondary hypertension (3) Tobacco abuse Current Visit: No Status: Chronic Smoking cessation education IS every 1 hour while awake Nicotine patch (4) Hyperbilirubinemia Current Visit: Yes Status: Acute T bili increased to 5.3 Plan: -repeat in AM Subjective Patient reports: no new complaints, feels better, still having pain, pain is less, tolerating liquids well, voiding w/o difficulty, afebrile Narrative: The patient was seen and examined. She states that she has diffuse abdominal soreness, her prior abdominal pain has resolved. She denies flatus or bowel movement. She denies nausea or vomiting. Objective Vital Signs - Last 8 Hours Temp Pulse Resp BP Pulse Ox 07/18/16 07:31 98.0 F 47 12 143/71 94 07/18/16 04:30 98.1 F 45 14 143/75 93 Intake and Output 07/17/16 07/18/16 07/18/16 23:59 07:59 15:59 Intake Total 111 / 111 100 / 100 220 / 220 Output Total 5 / 5 Balance 106 / 106 100 / 100 220 / 220 Intake: IV Fluids 111 / 111 100 / 100 100 / 100 0.9 % Sodium Chloride 1, / 000 ML @ 75 mls/hr IVC . [id number] [facility] Rx#: [id number] Mefoxin 2,000 MG In 100 / 100 100 / 100 100 / 100 Dextrose 5% (Minibag+) 100 ML 100 ML @ 200 mls/ hr IVPB Q8HR [facility] Rx#: [id number] Oral 0 / 0 120 / 120 Output: Estimated Blood Loss 5 / 5 Other: Meal NPO Breakfast Percent of Meal Consumed 0% 100% # Voids 1 3 - General physical appearance well developed, well nourished, no distress, moderate pain - Eyes PERRL, normal ocular movement - ENT normal pinna, normal nares, normal mucosa, atraumatic, normocephalic - Neck Neck exam: trachea midline - Respiratory normal expansion, normal respiratory effort, clear to auscultation - Cardiovascular Cardiovascular exam: Present: RRR, no murmurs/rubs/gallops - Abdomen Abdomen: Present: bowel sounds present, soft, tender Abdominal Tenderness: diffusely (Expected postop pain) - Incision Incision: Present: clean and dry, intact - Integumentary no rash, no growths, no abnormal pigmentation - Neurologic normal coordination, normal sensation - Musculoskeletal normal gait, normal posture - Psychiatric oriented to time, oriented to person, oriented to place, speech is normal, memory intact - Labs 07/18/16 04:10 07/17/16 05:24 Short CBC 07/18/16 Range/Units 04:10 WBC 3.7 L (4.3-11.1) K/mcL Hgb 15.0 D (11.5-15.4) g/dL Hct 46.2 H (35.3-44.9) % Plt Count 128 L (140-400) K/mcL Neutrophils # 3.2 (1.6-8.9) K/mcL Liver Function 07/18/16 Range/Units 04:10 Total Bilirubin 5.3 H (0.2-1.2) mg/dL Direct Bilirubin 3.8 H D (0.0-0.5) mg/dL AST 184 H (5-34) Units/L ALT 136 H (0-55) Units/L Alkaline Phosphatase 146 H (38-126) Units/L Albumin 4.0 D (3.5-5.0) g/dL - VTE Documentation of Mechanical Device: Intermittent pneumatic compression device Consult Discharge Plan - Plan Referrals: Pardeep,Joe Edward, DO [Primary Care Provider] - - Attending Attestation I examined this patient and my medical decision-making was reviewed with the [employer]/PA/Advanced Practice Nurse/Resident Physician. I agree with the documented findings, disposition and treatment plan as described except to the extent set forth below.
[2016-07-18] MEDS ORDERED: Simethicone 80 MG TAB.CHEW PO PRN (11:54)
[2016-07-18] MEDS: Ibuprofen 800 MG TABLET PO SCH ×3 (12:20→23:58)
[2016-07-18] MEDS: 0.9 % Sodium Chloride 1,000 ML IVC SCH (12:25)
[2016-07-19] MEDS: *HR* HYDROmorphone (PF) 1 MG/ML SYRINGE IVP PRN ×2 (02:35→08:14)
[2016-07-19] MEDS: 0.9 % Sodium Chloride 1,000 ML IVC SCH (02:37)
[2016-07-19 06:02] LABS: Albumin 3.4 g/dL (3.5-5.0); Albumin/Globulin Ratio 1.1 (1.1-2.2); Bilirubin,Indirect 0.8 mg/dL (0.0-1.2); Bilirubin,Total 3.5 mg/dL (0.2-1.2); Globulin 3.2 g/dL (2.4-3.5); Total Protein 6.6 g/dL (6.0-8.3)
[2016-07-19 06:04] LABS: Bilirubin,Direct 2.7 mg/dL (0.0-0.5)
[2016-07-19] MEDS: Ibuprofen 800 MG TABLET PO SCH (08:12)
[2016-07-19] MEDS: amLODIPine 5 MG TABLET PO SCH (08:12)
[2016-07-19] MEDS: Gabapentin 400 MG CAPSULE PO SCH (08:13)
[2016-07-19] MEDS: Nicotine 14 MG PATCH.TD24 TD SCH (08:14)
--- NOTE | 2016-07-19 09:01 | Discharge Summary ---
<Constanza Camarena - Last Filed: 07/19/16 08:59> Date of Encounter: 07/19/16 Time of Encounter: 13:00 - Discharge Diagnosis (1) Acute cholecystitis Priority: Primary Status: Acute (2) Hypertension Priority: Secondary Status: Chronic Qualifiers: Hypertension type: unspecified secondary hypertension Qualified Code(s): I15.9 - Secondary hypertension, unspecified; I15 - Secondary hypertension (3) Tobacco abuse Status: Chronic (4) Hyperbilirubinemia Priority: Secondary Status: Acute - Discharge Medications Prescriptions: Ibuprofen [Motrin] 800 mg PO Q8HR #50 tablet Docusate [Colace] 100 mg PO BID #30 capsule OxyCODONE/APAP 10/325 [Percocet 10/325 MG] 1 each PO Q6H PRN #30 tablet PRN Reason: Moderate Pain Home Medications: Gabapentin [Neurontin] 300 mg PO TID 02/25/16 [History] Quetiapine Fumarate [Seroquel] 100 mg PO HS 02/25/16 [History] Sertraline [Zoloft] 50 mg PO DAILY 02/25/16 [History] Omeprazole [PriLOSEC] 40 mg PO DAILY #30 capsule. 02/28/16 [Rx] Buprenorphine HCl/Naloxone HCl [Buprenorphin-Naloxon 8-2 mg Sl] 1 tab SL DAILY 07/16/16 [History] CloNIDine HCl [Kapvay] 0.5 tab PO DAILY 07/16/16 [History] Ziprasidone HCl [Geodon] 40 mg PO DAILY 07/16/16 [History] amLODIPine [Norvasc] 5 mg PO DAILY 07/16/16 [History] hydrOXYzine pamoate [HydrOXYzine Pamoate] 50 mg PO BID PRN 07/16/16 [History] Docusate [Colace] 100 mg PO BID #30 capsule 07/19/16 [Rx] Ibuprofen [Motrin] 800 mg PO Q8HR #50 tablet 07/19/16 [Rx] OxyCODONE/APAP 10/325 [Percocet 10/325 MG] 1 each PO Q6H PRN #30 tablet [Rx] Allergies/Adverse Reactions: Allergies azithromycin Adverse Reaction (Verified 07/15/16 12:22) Gastrointestinal Upset General Surgery Exam Initial Vital Signs Temp Pulse Resp BP Pulse Ox 98.0 F 64 20 138/95 99 07/16/16 11:17 07/16/16 11:17 07/16/16 11:17 07/16/16 11:17 07/16/16 11:17 - General physical appearance well developed, well nourished, no distress, moderate pain - Eyes PERRL, normal ocular movement - ENT normal mucosa, atraumatic, normocephalic - Neck trachea midline - Respiratory normal expansion, clear to auscultation - Cardiovascular Cardiovascular exam: Present: RRR - Abdomen Abdomen general surgery: Present: bowel sounds present, soft, tender ( appropriate post op tenderness) - Incision Incision: Present: clean and dry, intact - Integumentary Integumentary general surgery: Present: warm and dry, no abnormal pigmentation - Neurologic Present: CN 2-12 grossly intact - Musculoskeletal Present: normal gait, normal posture - Psychiatric Psychiatric general surgery: Present: A&Ox3, speech is normal Date of admission: 07/16/16 14:47 Primary care physician: Joe Silva Discharging clinician: Constanza Camarena Anticipated date of discharge: 07/19/16 - Patient Status Disposition: Home, Self-Care Condition: Good - Discharge Instructions Instructions: Laparoscopic Cholecystectomy (DC) Follow Up With: Joe Roberto DO [Primary Care Provider] - Constanza Camarena MD [Partnered Physician] - 08/01/16 1:50 pm (2 week surgical follow-up) Forms: Work/School Release Additional Instructions: No lifting more than 20 pounds for 2 weeks. Okay to take a shower in 24 hours. No tub baths or pools for 1 week. Okay to ride in the car wearing a seatbelt and climb steps. No driving until off narcotics for 24 hours and able to react safely Remove Steri-Strips in 1 week. - Diet and Activity Activity: increase activity as tolerated Diet: advance to your usual diet - Hospital Course Hospital course: Ms. Higuera is a 25 year old female who was admitted with acute cholecystitis, elevated LFTs. She was taken to the operating room on July 17 for an uncomplicated laparoscopic cholecystectomy with intraoperative cholangiograms showed no common bile duct stone. Postoperatively she was started on IV and by mouth pain medication, and pain control was initiated due to the patient's history of heroin use and being on Suboxone for the last 2 years. She was started on a clear liquid diet and advanced as she tolerates. Postop day 1 her LFTs increased, postoperative day 2 they then decreased. She was discharged home in stable condition. She was tolerating regular diet having appropriate bowel and bladder function. Her pain was controlled for the most part with by mouth pain medication. - Time Spent with Patient Total time spent providing and/or coordinating discharge services: Labs on day of discharge: Labs from last 24 hours 07/19/16 07/19/16 05:19 05:15 POC Glucose 126 H Total Bilirubin 3.5 H Direct Bilirubin 2.7 H Indirect Bilirubin 0.8 AST 188 H ALT 140 H Alkaline Phosphatase 137 H Serum Total Protein 6.6 Albumin 3.4 L Globulin 3.2 Albumin/Globulin Ratio 1.1 - Impressions ITS Impressions Cholangiogram,Operative 07/17/16 00:00 IMPRESSION: Cholecystectomy without evidence of choledocholithiasis. D/ / 07/17/2016 19:10:39 Sergio Escalante MD / [email or web address] Interpreting Provider: Sergio Escalante MD <Radha Lynn - Last Filed: 07/19/16 13:28> Date of Encounter: 07/19/16 - Discharge Diagnosis (1) Acute cholecystitis Status: Resolved (2) Hypertension Status: Chronic Qualifiers: Hypertension type: unspecified secondary hypertension Qualified Code(s): I15.9 - Secondary hypertension, unspecified; I15 - Secondary hypertension (3) Tobacco abuse Status: Chronic (4) Hyperbilirubinemia Status: Acute (5) Bipolar disorder Status: Chronic Qualifiers: Active/Remission status: remission status unspecified Qualified Code(s): F31.9 - Bipolar disorder, unspecified (6) DVT prophylaxis Status: Acute General Surgery Exam Initial Vital Signs Temp Pulse Resp BP Pulse Ox 98.0 F 64 20 138/95 99 07/16/16 11:17 07/16/16 11:17 07/16/16 11:17 07/16/16 11:17 07/16/16 11:17 Date of admission: 07/16/16 14:47 Primary care physician: Joe Silva - Patient Status Overall status at discharge: patient is progressing back to baseline - Hospital Course Hospital course: Ms. Higuera is a 25 year old female - Time Spent with Patient Total time spent providing and/or coordinating discharge services: Less than 30 minutes Labs on day of discharge: Labs from last 24 hours 07/19/16 07/19/16 05:19 05:15 POC Glucose 126 H Total Bilirubin 3.5 H Direct Bilirubin 2.7 H Indirect Bilirubin 0.8 AST 188 H ALT 140 H Alkaline Phosphatase 137 H Serum Total Protein 6.6 Albumin 3.4 L Globulin 3.2 Albumin/Globulin Ratio 1.1 - Impressions ITS Impressions Cholangiogram,Operative 07/17/16 00:00
[2016-07-19 10:47] VITALS: BP 151/90
== END 2016-07-19 13:43 | disposition home or self-care (01) ==
LOC: 3ANU 11:15 → EMEROO 11:15 → 3ANU 15:28
PROVIDERS: ADMIT Surgery; ATTEND Surgery